=== PATIENT | female | born 1940 | race Caucasian/White ===

== ENCOUNTER 2022-04-24 13:58 | Inpatient (IN) ==
[2022-04-24 14:09] VITALS: BMI 23.3
--- NOTE | 2022-04-24 14:15 | DR.GENAD ---
HPI Time Seen Time Seen by Provider: 04/24/22 14:14 PCP Primary Care Physician: Corona Martinez Complaint/Symptoms Chief Complaint Doctors Comments: 82 y/o female presents for evaluation. Fell 5 days ago, seen in another ER. Had bilateral anterior knee wounds, were not closed (tissue paper skin), is on Eliquis. Pt had a knee immobilizer placed, with dressings underkneath to the RLE. Was told not totake off, to leave dressing intact. Pt having increasing pain of the RLE. Pain is sharp, constant, located R knee/lower leg, does not radiate. + worse with minimal movement. Nothing makes it better. Has had some chills, no known fever. Denies URI, bowel or bladder symptoms. Chief Complaint:: I feel 5 days ago and now I'm having severe left leg pain unrelieved by rx. Tramadol. Pt. rates pain 15-20 on 10 point pain scale. Pt. anxious with elevated BP of 220/99. Left leg in long leg splint. 2-3+ edema noted to left foot. Foot blue but warm to touch with positive pedal pulses. Pt. also has injury to right knee, but states that doesn't hurt much. Pt's son arrived and further explained that she was seen at the ER in [place]. When she fell, she landed on her knees and had no broken bones just bad skin tears to both knees that were unable to be sutured d/t skin very thin. Self Treatment fo Chief Complaint: Treat here in ER 5 days ago for fall COVID-19 Coronavirus risk:travel/contact w/high risk person: No Has patient experienced Coronavirus symptoms: No Nurses notes reviewed Nurses Notes Review: Yes Source History Provided: Patient Mode of Arrival Mode of Arrival: EMS Timing Onset of Chief Complaint: 04/24/22 PMH PMH Past Medical History: Yes Past Medical History: Coronary Artery Disease, Dyslipidemia, GERD and Hypertension Past Surgical History: Yes Surgical History: Angioplasty/Stents, Hysterectomy and Mastectomy Past Surgical History Comment: cataracts Family History History of Family Medical Conditions: Yes Family Medical History: Cancer, [place] and Coronary Artery Disease Social History Does patient currently use any type of tobacco product: No Have you used tobacco products in the last 12 months: No Type of Tobacco Use: None Does any household member use tobacco: No Alcohol Use: None Do you use any recreational Drugs:: No Lives With: Alone Lives Where: Home Travel Risk Coronavirus risk:travel/contact w/high risk person: No Has patient experienced Coronavirus symptoms: No Infectious screening In the last 2 months have you had wt loss of >10#?: NO Have you had fever, night sweats or hemotysis?: No Have you traveled outside the country in the last 6 months?: No Isolation: Standard ROS Review of Systems Constitutional: Chills Eyes: No Symptoms Reported ENTM: No Symptoms Reported Respiratoy: No Symptoms Reported Cardiovascular: No Symptoms Reported Gastrointestinal/Abdominal: No Symptoms Reported Genitourinary: No Symptoms Reported Neurological: No Symptoms Reported Musculoskeletal: See HPI Integumentary: No Symptoms Reported Psychiatric: No Symptoms Reported All Other Systems: Reviewed and Negative PE Vital Signs Vitals: Temperature 97.7 F Pulse Rate 63 Respiratory Rate 16 Blood Pressure [Right Radial 178/81 Artery] Blood Pressure 185/85 O2 Sat by Pulse Oximetry 98 General General Appearance: Alert, In No Apparent Distress and Other (appears uncomfortable) Eyes Eye exam: PERRL and EOMI ENT ENT Exam: Normal Oropharynx and Mucous Membranes Moist Neck Neck Exam: Normal Inspection and Full ROM Respiratory Respiratory Exam: Normal Lung Sounds Bilat; negative Accessory Muscle Use or Respiratory Distress Cardiovascular Cardiovascular Exam: Regular Rate, Normal Rhythm and Normal Heart Sounds Abdominal Exam Abdominal Exam: Normal Bowel Sounds and Soft; negative Tenderness Neurologic Neurological Exam: Alert, Oriented X3 and CN II-XII Intact; negative Motor Sensory Deficit Skin Skin Exam: Warm and Dry Other Exam Other Exam: L knee - immobilizer, dressings removed (after soaking w/saline) - + large anterior wound of the knee, 8.1 x 10.2 cms. L anterior napier wih 7.0 x 4.5 cms wound. Both with significant surrounding soft tissue tenderness. + pitting edema, 2+ of lower exts bilaterally, soft, not taught. Left foot was dusky with dressing/splint on, + pinker on removal. + distal NV intact. R anterior knee with smaller abrasion wound. COURSE Treatment Treatment: 82 y/o female fell 5 days ago, injured both knees, with avulsion type wounds. Now with increasing pain. Splint/dressing had a lot of pressure on the wound, removed. Do not believ the pt has compartment syndrome clinically. Does appear to be developing LLE cellulitis. W/u initiated. Pt given IV fluids. 1746 - + elevated WBC, 21K. Chemistries show low potassium, 2.6 . Is on lasix. X-rays without obvious gas formation, fractures, or osteomyelitis changes. Pt started on antibiotics. Recommend admission for further treatment of LLE cellulitis, hypokalemia. Pt givne PO/IV potassium here. Discussed with Dr Chacon's RN (he is process validation engineer). Will treat the pt with IV zosyn/vancomycin. PT given IV morphine here with good effect. ROR Labs Reviewed Result Diagrams: 04/24/22 14:40 04/24/22 14:40 Laboratory: WBC 21.5 X10^3/uL (3.6-10.0) H 04/24/22 14:40 RBC 3.96 X10^6/uL (3.5-5.4) 04/24/22 14:40 Hgb 12.5 g/dL (12.0-16.0) 04/24/22 14:40 Hct 36.2 % (36.0-47.0) 04/24/22 14:40 MCV 91.5 fL (80.0-100.0) 04/24/22 14:40 MCH 31.6 pg (27.0-34.0) 04/24/22 14:40 MCHC 34.6 g/dL (33.0-35.0) 04/24/22 14:40 RDW 15.1 % (11.6-16.5) 04/24/22 14:40 Plt Count 356 X10^3/uL (150.0-450.0) 04/24/22 14:40 Plt Count Comment Adequate (ADEQUATE) 04/24/22 14:40 MPV 6.8 fL (7.4-11.0) L 04/24/22 14:40 Neut % (Auto) 87.7 % (42.0-75.0) H 04/24/22 14:40 Lymph % (Auto) 5.5 % (21.0-51.0) L 04/24/22 14:40 [place] % (Auto) 6.3 % (0.0-13.0) 04/24/22 14:40 Eos % (Auto) 0.1 % (0.9-2.9) L 04/24/22 14:40 Baso % (Auto) 0.4 % (0.2-1.0) 04/24/22 14:40 Neut # (Auto) 18.9 x10^3/uL (2.2-4.8) H 04/24/22 14:40 Lymph # (Auto) 1.2 X10^3/uL (1.3-2.9) L 04/24/22 14:40 [place] # (Auto) 1.4 x10^3/uL (0.3-0.8) H 04/24/22 14:40 Eos # (Auto) 0.0 x10^3/uL (0.0-0.2) 04/24/22 14:40 Baso # (Auto) 0.1 X10^3/uL (0.0-0.1) 04/24/22 14:40 Absolute Nucleated RBC 0.0 /100WBC 04/24/22 14:40 Total Counted 100 04/24/22 14:40 Neutrophils % (Manual) 93 % (39-76) H 04/24/22 14:40 Lymphocytes % (Manual) 5 % (13-43) L 04/24/22 14:40 Monocytes % (Manual) 2 % (4-9) L 04/24/22 14:40 Plt Morphology Comment Normal (NORMAL) 04/24/22 14:40 RBC Morphology Normal (NORMAL) 04/24/22 14:40 Sodium 141 mmol/L (136-145) 04/24/22 14:40 Corrected Sodium 142 mmol/L (136-145) 04/24/22 14:40 Potassium 2.6 mmol/L (3.5-5.1) L* 04/24/22 14:40 Chloride 102 mmol/L (98-107) 04/24/22 14:40 Carbon Dioxide 27.5 mmol/L (21-32) 04/24/22 14:40 BUN 32 mg/dL (7-18) H 04/24/22 14:40 Creatinine 1.11 mg/dL (0.55-1.02) H 04/24/22 14:40 Est GFR (MDRD) Af Amer > 60 (>60) 04/24/22 14:40 Est GFR (MDRD) Non-Af 50 (>60) L 04/24/22 14:40 Glucose 134 mg/dL (65-99) H 04/24/22 14:40 Lactic Acid 2.0 mmol/L (0.4-2.0) 04/24/22 15:30 Calcium 8.8 mg/dL (8.5-10.1) 04/24/22 14:40 Corrected Calcium 9.9 mg/dL (8.5-10.1) 04/24/22 14:40 Total Bilirubin 1.00 mg/dL (0.2-1.0) 04/24/22 14:40 AST 27 Units/L (15-37) 04/24/22 14:40 ALT 20 Units/L (12-78) 04/24/22 14:40 Alkaline Phosphatase 69 Units/L (46-116) 04/24/22 14:40 Total Protein 6.7 g/dL (6.4-8.2) 04/24/22 14:40 Albumin 2.6 g/dL (3.4-5.0) L 04/24/22 14:40 Globulin 4.1 g/dL (2.5-4.5) 04/24/22 14:40 Albumin/Globulin Ratio 0.6 Ratio (1.1-2.1) L 04/24/22 14:40 Opioid Opioid Risk Tool Age (Ebenezer box if 16-45): No History of Preadolescent Sexual Abuse: No Total: 0 Total Score Risk Category: Low Risk Copyright: Demar BERRIOS predicting aberrant behaviors Discharge Plan Diagnosis Discharge Problem: Cellulitis of left leg, Hypokalemia Discharge Plan Patient Disposition: ADMITTED INPATIENT Condition: Stable
[2022-04-24] MEDS ORDERED: MORPHINE SULFATE INJ 4 MG ONE ×3 (14:20→16:56)
[2022-04-24] MEDS ORDERED: ZOFRAN INJ 4 MG VIAL IVP ONE (14:22)
[2022-04-24] MEDS ORDERED: ZOFRAN INJ 4 MG VIAL ONE (14:22)
[2022-04-24] MEDS ORDERED: MORPHINE SULFATE INJ 4 MG IVP ONE ×3 (14:22→17:10)
[2022-04-24] MEDS ORDERED: NS 1,000 ML IV 1,000 ML ONE (14:30)
[2022-04-24] MEDS: NS 1,000 ML IV 1,000 ML IV SCH (14:34)
[2022-04-24 14:52] LABS: BASOPHILS # (AUTO) 0.1 X10^3/uL (0.0-0.1); BASOPHILS % (AUTO) 0.4 % (0.2-1.0); EOSINOPHILS % (AUTO) 0.1 % (0.9-2.9); HEMATOCRIT 36.2 % (36.0-47.0); HEMOGLOBIN 12.5 g/dL (12.0-16.0); LYMPHOCYTES # (AUTO) 1.2 X10^3/uL (1.3-2.9); LYMPHOCYTES % (AUTO) 5.5 % (21.0-51.0); MEAN CORPUSCULAR HEMOGLOBIN 31.6 pg (27.0-34.0); MEAN CORPUSCULAR HGB CONC 34.6 g/dL (33.0-35.0); MEAN CORPUSCULAR VOLUME 91.5 fL (80.0-100.0); MEAN PLATELET VOLUME 6.8 fL (7.4-11.0); MONOCYTES # (AUTO) 1.4 x10^3/uL (0.3-0.8); MONOCYTES % (AUTO) 6.3 % (0.0-13.0); NEUTROPHILS # (AUTO) 18.9 x10^3/uL (2.2-4.8); NEUTROPHILS % (AUTO) 87.7 % (42.0-75.0); RED BLOOD COUNT 3.96 X10^6/uL (3.5-5.4); RED CELL DISTRIBUTION WIDTH 15.1 % (11.6-16.5); WHITE BLOOD COUNT 21.5 X10^3/uL (3.6-10.0)
[2022-04-24 15:05] LABS: ALANINE AMINOTRANSFERASE 20 Units/L (12-78); ALBUMIN 2.6 g/dL (3.4-5.0); ALKALINE PHOSPHATASE 69 Units/L (46-116); ASPARTATE AMINO TRANSFERASE 27 Units/L (15-37); BLOOD UREA NITROGEN 32 mg/dL (7-18); CALCIUM 8.8 mg/dL (8.5-10.1); CARBON DIOXIDE 27.5 mmol/L (21-32); CHLORIDE 102 mmol/L (98-107); COR CA(FOR HYPOALB) 9.9 mg/dL (8.5-10.1); COR NA(FOR HYPERGLY) 142 mmol/L (136-145); CREATININE 1.11 mg/dL (0.55-1.02); SODIUM 141 mmol/L (136-145); TOTAL PROTEIN 6.7 g/dL (6.4-8.2); eGFR NON BLACK RACES 50 (>60)
[2022-04-24 15:14] LABS: PLATELET MORPHOLOGY COMMENT NORMAL (NORMAL)
[2022-04-24] MEDS ORDERED: ZOSYN VIAL 4.5 GRAMS 4.5 G in NS 100 ML IV 100 ML IV SCH (15:23)
[2022-04-24] MEDS ORDERED: LOPRESSOR INJ 5 MG AMP IVP ONE (17:10)
[2022-04-24] MEDS ORDERED: LOPRESSOR INJ 5 MG AMP ONE (17:12)
[2022-04-24] MEDS ORDERED: K-RIDER 10 MEQ/NS 100 ML 10 MEQ/100 ML BAG IV ONE (17:20)
[2022-04-24] MEDS ORDERED: K-DUR TAB 20 MEQ PO ONE ×2 (17:21→17:39)
[2022-04-24] MEDS ORDERED: ZOSYN VIAL 3.375 GRAMS 3.375 G in NS 100 ML IV 100 ML IV ONE (17:37)
[2022-04-24] MEDS ORDERED: ZOSYN VIAL 3.375 GRAMS IV ONE (17:39)
[2022-04-24] MEDS ORDERED: NS 100 ML IV 100 ML ONE (17:40)
[2022-04-24] MEDS ORDERED: APRESOLINE INJ 20 MG VIAL IVP ONE ×2 (18:03→18:04)
[2022-04-24] MEDS ORDERED: APRESOLINE INJ 20 MG VIAL ONE (18:04)
[2022-04-24] MEDS ORDERED: ULTRAM PO PRN ×2 (18:56→19:09)
[2022-04-24] MEDS ORDERED: ZOSYN VIAL 3.375 GRAMS 3.375 G in NS 100 ML IV 100 ML IV SCH (19:09)
[2022-04-24] MEDS ORDERED: ZOFRAN INJ 4 MG VIAL IVP PRN (19:09)
[2022-04-24] MEDS ORDERED: VANCOMYCIN IV *PREMIX 1 G/200 ML BAG 1 G/200 ML PIGGYBACK IV SCH ×2 (19:09→21:00)
--- NOTE | 2022-04-24 20:31 | RAD ---
HISTORYS/P FALL FIVE DAYS AGO, WOUND AND WORSENING PAIN HTN,STENTS,EYE, HYST, MASTECTOMYSTUDYKNEE, AP/LAT RIGHT 2vCOMPARISONNoneFINDINGSNo evidence for acute cortical disruption or dislocation. Moderate tricompartmental osteoarthrosis. Chondrocalcinosis in the medial and lateral compartments. Moderate knee joint effusion. Soft tissue edema surrounding the knee.IMPRESSIONTricompartmental osteoarthrosis without acute fracture or dislocation.Electronically signed by: BHAVESH MARLOW (Apr 24, 2022 20:29:32)
--- NOTE | 2022-04-24 20:34 | RAD ---
HISTORYS/P FALL SATURDAY, WOUND AND WORSENING PAIN HTN, STENTS, EYE, HYST, MASTECTOMYSTUDYLOWER LEG, TIB/FIB RIGHT 2vCOMPARISONRight knee same dayFINDINGSAP and lateral radiographs of the lower extremity demonstrate no evidence for acute cortical disruption. Edema in the upper calf.. Calcaneal enthesophytes.IMPRESSIONEdema without acute fracture.Electronically signed by: BHAVESH MARLOW (Apr 24, 2022 20:32:12)
[2022-04-24] MEDS ORDERED: LIPITOR TAB 40 MG PO SCH (21:00)
[2022-04-24] MEDS ORDERED: FERROUS GLUCONATE PO SCH (21:00)
[2022-04-24] MEDS ORDERED: REQUIP PO SCH (21:00)
[2022-04-24] MEDS: REQUIP PO SCH (21:39)
[2022-04-24] MEDS: FERROUS GLUCONATE PO SCH (21:40)
[2022-04-24] MEDS: COREG TAB 6.25 MG PO SCH (21:40)
[2022-04-24] MEDS: K-DUR TAB 20 MEQ PO SCH (21:41)
[2022-04-24] MEDS: MORPHINE SULFATE INJ 4 MG IVP PRN (21:42)
[2022-04-24] MEDS: ZOSYN VIAL 3.375 GRAMS 3.375 G in NS 100 ML IV 100 ML IV SCH (23:11)
[2022-04-25] MEDS: MORPHINE SULFATE INJ 4 MG IVP PRN ×5 (04:34→23:32)
[2022-04-25 04:53] LABS: BASOPHILS # (AUTO) 0.1 X10^3/uL (0.0-0.1); BASOPHILS % (AUTO) 0.4 % (0.2-1.0); HEMATOCRIT 33.9 % (36.0-47.0); HEMOGLOBIN 11.5 g/dL (12.0-16.0); LYMPHOCYTES # (AUTO) 0.8 X10^3/uL (1.3-2.9); LYMPHOCYTES % (AUTO) 4.4 % (21.0-51.0); MEAN CORPUSCULAR HEMOGLOBIN 31.8 pg (27.0-34.0); MEAN CORPUSCULAR HGB CONC 33.9 g/dL (33.0-35.0); MEAN PLATELET VOLUME 6.8 fL (7.4-11.0); MONOCYTES # (AUTO) 1.1 x10^3/uL (0.3-0.8); MONOCYTES % (AUTO) 6.1 % (0.0-13.0); NEUTROPHILS % (AUTO) 89.1 % (42.0-75.0); RED BLOOD COUNT 3.61 X10^6/uL (3.5-5.4); RED CELL DISTRIBUTION WIDTH 15.1 % (11.6-16.5); WHITE BLOOD COUNT 17.9 X10^3/uL (3.6-10.0)
[2022-04-25 05:05] LABS: ALANINE AMINOTRANSFERASE 19 Units/L (12-78); ALBUMIN 2.1 g/dL (3.4-5.0); ALKALINE PHOSPHATASE 60 Units/L (46-116); ASPARTATE AMINO TRANSFERASE 23 Units/L (15-37); BLOOD UREA NITROGEN 27 mg/dL (7-18); CALCIUM 8.1 mg/dL (8.5-10.1); CHLORIDE 106 mmol/L (98-107); COR CA(FOR HYPOALB) 9.6 mg/dL (8.5-10.1); COR NA(FOR HYPERGLY) 143 mmol/L (136-145); CREATININE 0.89 mg/dL (0.55-1.02); SODIUM 142 mmol/L (136-145); TOTAL PROTEIN 5.9 g/dL (6.4-8.2); eGFR NON BLACK RACES > 60 (>60)
[2022-04-25] MEDS: ZOSYN VIAL 3.375 GRAMS 3.375 G in NS 100 ML IV 100 ML IV SCH ×3 (05:06→23:31)
[2022-04-25] MEDS: NS 1,000 ML IV 1,000 ML IV SCH ×2 (05:47→19:30)
[2022-04-25] MEDS ORDERED: LIPITOR TAB 40 MG PO SCH (09:00)
[2022-04-25] MEDS ORDERED: COREG TAB 6.25 MG PO SCH (09:00)
[2022-04-25] MEDS ORDERED: COZAAR PO SCH (09:00)
[2022-04-25] MEDS ORDERED: PLAVIX PO SCH (09:00)
[2022-04-25] MEDS ORDERED: CARDIZEM CD 180 MG 24-HR PO SCH (09:00)
[2022-04-25] MEDS ORDERED: PROTONIX TAB 40 MG PO SCH (09:00)
[2022-04-25] MEDS: VANCOMYCIN IV *PREMIX 1 G/200 ML BAG 1 G/200 ML PIGGYBACK IV SCH ×2 (10:00→21:59)
[2022-04-25] MEDS ORDERED: BETADINE SOLN ONE (10:44)
--- NOTE | 2022-04-25 10:54 | DR.H&P ---
H&P - History & Physical for Day of: H&P Date: 04/24/22 - Chief Complaint Chief Complaint: bilateral knee and lower leg pain, multiple skin tears - History of Present Illness History of Present Illness: IS A 82 YEAR OLD PATIENT OF IN [place], [place]. SHE PRESENTED TO THE ER WITH COMPLAINTS OF RIGHT KNEE AND BILATERAL LOWER EXTREMITY PAIN FOLLOWING A FALL FIVE DAYS AGO. SHE WAS FIRST SEEN IN THE ER AT [facility] FOLLOWING THE FALL. [facility]RAYS DID NOT REVEAL ACUTE FRACTURES. PATIENT DID, HOWEVER, HAVE MULTIPLE SKIN TEARS TO BILATERAL LEGS. SHE REPORTS THAT A DRESSING WAS PLACED ON THE LEG WELL AN IMMOBILIZER. PATIENT WAS TOLD NOT TO REMOVE THE DRESSING. PATIENT REPORTS THAT PAIN HAS PERSISTENTLY GOTTEN WORSE. SHE ALSO REPORTS INCREASED SWELLING TO THE LEFT FOOT. SHE RATES PAIN A 10/10. SHE DESCRIBES PAIN SHARP AND CONSTANT. SHE REPORTS THAT PAIN HAS NOT BEEN RELIEVED BY TAKING TRAMADOL. PAIN IS APPARENTLY WORSE WITH MOVEMENT. UPON EXAMINATION, LEFT FOOT WAS NOTED WITH 2-3+ PITTING EDEMA. MODERATE BRUISING NOTED TO BILATERAL LOWER EXTREMITIES. THERE WERE ALSO MULTIPLE SKIN TEARS NOTED TO BILATERAL LEGS WITH THE LEFT BEING WORSE THAN THE RIGHT LEG. SEROSANGUINOUS DRAINAGE NOTED FROM WOUNDS OF THE LEFT LEG. ADDITIONALLY, PATIENT REPORTS SEVERE WEAKNESS TO UPPER AND LOWER EXTREMITIES. PATIENTS PMH INCLUDES: CAD, DYSLIPIDEMIA, GERD, HTN, CARDIAC STENTS, HYSTERECTOMY, AND MASTECTOMY. ON ARRIVAL TO THE HOSPITAL, VITALS WERE: 97.7-72-20-99%-220/99. LABS WERE OBTAINED. WBC 21.5, RBC 3.96, HGB 12.5, HCT 36.2, PLT COUNT 356, SODIUM 141, POTASSIUM 2.6, CHLORIDE 102, BUN 32, CREATININE 1.11, GLUCOSE 134, CALCIUM 8.8, TOTAL BILI 1.00, AST 27, ALT 20, ALK PHOS 69, TOTAL PROTEIN 6.7, ALBUMIN 2.6. A RIGHT KNEE XRAY WAS OBTAINED AND REVEALED: Tricompartmental osteoarthrosis without acute fracture or dislocation. RIGHT TIB/FIB XRAY REVEALED: Edema without acute fracture. IN THE ER, PATIENT WAS GIVEN MORPHINE 4MG IV X 2 DOSES, ZOFRAN 4MG IV X 1, LOPRESSOR 2.5MG IV X 1, K- DUR 20MG PO X 1, APRESOLINE 10MG IV X 1, ZOSYN 3.375G IV X 1. BLOOD PRESSURE DECREASED TO 181/83. SHE WAS ADMITTED TO THE HOSPITAL FOR FURTHER EVALUATION AND TREATMENT OF BILATERAL LOWER EXTREMITY CELLULITIS, HYPOKALEMIA, AND GENERALIZED WEAKNESS. SHE WAS STARTED ON NORMAL SALINE AT 75 ML/HR, ZOSYN 3.375G IV TID, VANCOMYCIN 1G IV BID, ALBUMIN 25% IV DAILY, ZOFRAN 4MG IV Q6H PRN, MORPHINE 4MG IV Q4H PRN PAIN, COZAAR 50MG PO DAILY, AND HER HOME MEDICATIONS WERE RESUMED. WE WILL CONSULT , GENERAL SURGEON, FOR POSSIBLE DEBRIDEMENT OF WOUNDS. OTHERWISE, WE WILL FOLLOW-UP WITH AM LABS AND CONTINUE TO MONITOR. TIME SPENT ON CLINICAL ASSESSMENT, REVIEWING LABS AND IMAGING, DECISION MAKING, AND DOCUMENTATION GREATER THAN 75 MINUTES. - Past Medical History Past Medical History: Coronary Artery Disease, Hypertension, Dyslipidemia, GERD - Past Surgical History Surgical History: Hysterectomy, Mastectomy - Family History Family Medical History: Cancer, Hypertension - Social History Does patient currently use any type of tobacco product: No Have you used tobacco products in the last 12 months: No Type of Tobacco Use: Cigarettes How many years tobacco product used: 35 Does any household member use tobacco: No Alcohol Use: None Drug Use: None - Medications Home Medications: ciprofloxacin [From Cipro] Allergy (Verified 11/10/21 17:47) clindamycin Allergy (Verified 11/10/21 17:47) codeine Allergy (Verified 11/10/21 17:47) nitrofurantoin [From Macrobid] Allergy (Verified 11/10/21 17:47) CONTINUE taking the following medications atorvastatin 40 mg tablet 1 tab PO QDAY 04/24/22 [History] carvedilol 6.25 mg tablet 1 tab PO BID 04/24/22 [History] clopidogrel 75 mg tablet 1 tab PO QDAY 04/24/22 [History] diltiazem HCl 180 mg capsule,extended release 24 hr 1 cap PO QDAY 04/24/22 [History] ferrous sulfate 325 mg (65 mg iron) tablet (FeroSul) 1 tab PO BID 04/24/22 [History] furosemide 40 mg tablet 1 tab PO QDAY 04/24/22 [History] losartan 50 mg tablet 1 tab PO QDAY 04/24/22 [History] pantoprazole 40 mg tablet,delayed release 1 tab PO QDAY 04/24/22 [History] ropinirole 0.5 mg tablet 1 tab PO QPM 04/24/22 [History] tramadol 50 mg tablet 1 tab PO Q6H PRN 04/24/22 [History] - Review of Systems Constitutional: Chills, Weakness. denies: Fever Eyes: No Symptoms Reported ENT: No Symptoms Reported Respiratory: No Symptoms Reported Cardiovascular: No Symptoms Reported Gastrointestinal: No Symptoms Reported Genitourinary: No Symptoms Reported Musculoskeletal: See HPI, Leg Pain (LEFT LOWER LEG PAIN, RIGHT LOWER LEG PAIN, RIGHT KNEE PAIN ), Foot Pain (LEFT FOOT PAIN ) Skin: See HPI, Wound (BILATERAL LOWER EXTREMITY SKIN TEARS AND ABRASIONS) Neurological: Weakness - Physical Exam Vital Signs: Temperature 97.8 F Pulse Rate [Bilateral Radial] 68 Pulse Rate 59 Respiratory Rate 19 Blood Pressure [Right Arm] 163/73 Blood Pressure [Right Radial 126/60 Artery] Blood Pressure 198/83 O2 Sat by Pulse Oximetry 94 Oriented: Normal Eyes: Normal Ear: Normal Nose: Normal Throat: Normal Respiratory: Clear Throughout Cardiovascular: Normal : Normal Auscultation: Bowel Sounds: Normal Palpation: Normal Tenderness: Normal Skin: Red, Tender, Hot, Wound (BILATERAL LOWER EXTREMITY SKIN TEARS AND ABRASIONS), Bruising Musculoskeletal: Right, Left, Knee (RIGHT KNEE PAIN ), Leg (BILATERAL LOWER EXTREMITY SKIN TEARS ), Foot, Swelling (LEFT FOOT SWELLING ), Tender Psychiatric: Normal Mood Description: Calm Affect: Normal Speech Pattern: Clear - Assessment/Plan (1) Bilateral lower leg cellulitis Status: Acute Plan: ADMIT, NORMAL SALINE AT 75 ML/HR, ZOSYN 3.375G IV TID, VANCOMYCIN 1G IV BID, ALBUMIN 25% IV DAILY, ZOFRAN 4MG IV Q6H PRN, MORPHINE 4MG IV Q4H PRN PAIN, COZAAR 50MG PO DAILY, AND HER HOME MEDICATIONS WERE RESUMED. CONSULT FOR WOUND DEBRIDEMENT (2) Generalized weakness Status: Acute (3) Hypokalemia Status: Acute (4) Hypoalbuminemia Status: Acute - Allergies Allergies/Adverse Reactions: Allergies Allergy/AdvReac Type Severity Reaction Status Date / Time ciprofloxacin [From Cipro] Allergy Verified 11/10/21 17:47 clindamycin Allergy Verified 11/10/21 17:47 codeine Allergy Verified 11/10/21 17:47 nitrofurantoin Allergy Verified 11/10/21 17:47 [From [place]]
[2022-04-25] MEDS ORDERED: POLYMYXIN B SULFATE ONE (10:59)
[2022-04-25] MEDS ORDERED: LR 1,000 ML IV 1,000 ML IV ONE (11:14)
[2022-04-25] MEDS ORDERED: PEPCID 20 MG VIAL ONE (11:27)
[2022-04-25] MEDS ORDERED: ROBINUL ONE (11:27)
[2022-04-25] MEDS ORDERED: ZOFRAN INJ 4 MG VIAL ONE (11:27)
[2022-04-25] MEDS ORDERED: PRECEDEX INJ VIAL IVP ONE (11:28)
[2022-04-25] MEDS ORDERED: XYLOCAINE 2 % (PLAIN) ONE (11:28)
[2022-04-25] MEDS ORDERED: VERSED ONE (11:32)
[2022-04-25] MEDS ORDERED: KETAMINE 50 MG/5 ML-NACL SYRNG ONE (11:32)
--- NOTE | 2022-04-25 11:43 | EKG ---
Test Reason : pre-op Blood Pressure : */* mmHG Vent. Rate : 62 BPM Atrial Rate : 62 BPM P-R Int : 144 ms QRS Dur : 80 ms QT Int : 436 ms P-R-T Axes : 65 1 60 degrees QTc Int : 442 ms Sinus rhythm with occasional premature ventricular complexes Minimal voltage criteria for LVH, may be normal variant ( [place] product ) Anterolateral infarct , age undetermined Abnormal ECG No previous ECGs available Confirmed by Shaun Mendoza ([id number]) on 04/26/2022 10:28:50 AM Referred By: Confirmed By: Shaun Mendoza
[2022-04-25] MEDS ORDERED: ULTANE GAS IN ONE (11:44)
[2022-04-25] MEDS ORDERED: LACRI-LUBE S.O.P. ONE (11:52)
[2022-04-25] MEDS ORDERED: EPHEDRINE SULFATE INJ ONE (12:01)
[2022-04-25] MEDS ORDERED: HYDROGEN PEROXIDE 3% ONE (12:18)
[2022-04-25] MEDS ORDERED: BACTROBAN TOPICAL OINT ONE (12:20)
[2022-04-25] MEDS ORDERED: OFIRMEV IV 1000 MG VIAL 1,000 MG/100 ML VIAL IV ONE (12:26)
[2022-04-25] MEDS ORDERED: DILAUDID INJ IVP PRN (12:46)
[2022-04-25] MEDS ORDERED: ZOFRAN INJ 4 MG VIAL IVP PRN (12:46)
[2022-04-25] MEDS ORDERED: BENADRYL INJ 50 MG VIAL IVP PRN (12:46)
[2022-04-25] MEDS: K-DUR TAB 20 MEQ PO SCH ×2 (13:59→21:58)
[2022-04-25] MEDS: PLAVIX PO SCH (14:02)
[2022-04-25] MEDS: ALBUMIN HUMAN 25%- 100 ML 100 ML IV SCH (14:13)
[2022-04-25] MEDS: COREG TAB 6.25 MG PO SCH ×2 (14:17→21:59)
[2022-04-25] MEDS: PROTONIX TAB 40 MG PO SCH (14:17)
[2022-04-25] MEDS: CARDIZEM CD 180 MG 24-HR PO SCH (14:18)
[2022-04-25] MEDS: COZAAR PO SCH (14:18)
[2022-04-25] MEDS: LASIX PO SCH (14:18)
[2022-04-25] MEDS: FERROUS GLUCONATE PO SCH ×2 (14:19→21:59)
[2022-04-25] MEDS: REQUIP PO SCH (21:58)
[2022-04-26] MEDS ORDERED: CATAPRES TAB 0.1 MG PO ONE (03:58)
[2022-04-26] MEDS ORDERED: CATAPRES TAB 0.1 MG ONE (04:31)
[2022-04-26] MEDS: MORPHINE SULFATE INJ 4 MG IVP PRN ×3 (04:45→21:27)
[2022-04-26 05:34] LABS: BASOPHILS % (AUTO) 0.3 % (0.2-1.0); HEMATOCRIT 29.9 % (36.0-47.0); HEMOGLOBIN 10.3 g/dL (12.0-16.0); LYMPHOCYTES # (AUTO) 0.9 X10^3/uL (1.3-2.9); LYMPHOCYTES % (AUTO) 6.6 % (21.0-51.0); MEAN CORPUSCULAR HEMOGLOBIN 32.3 pg (27.0-34.0); MEAN CORPUSCULAR HGB CONC 34.6 g/dL (33.0-35.0); MEAN CORPUSCULAR VOLUME 93.5 fL (80.0-100.0); MEAN PLATELET VOLUME 7.2 fL (7.4-11.0); MONOCYTES # (AUTO) 0.8 x10^3/uL (0.3-0.8); MONOCYTES % (AUTO) 5.8 % (0.0-13.0); NEUTROPHILS # (AUTO) 11.4 x10^3/uL (2.2-4.8); NEUTROPHILS % (AUTO) 87.3 % (42.0-75.0); RED BLOOD COUNT 3.19 X10^6/uL (3.5-5.4); RED CELL DISTRIBUTION WIDTH 15.3 % (11.6-16.5)
[2022-04-26 05:44] LABS: ALANINE AMINOTRANSFERASE 51 Units/L (12-78); ALBUMIN 2.6 g/dL (3.4-5.0); ALKALINE PHOSPHATASE 61 Units/L (46-116); ASPARTATE AMINO TRANSFERASE 63 Units/L (15-37); BLOOD UREA NITROGEN 23 mg/dL (7-18); CALCIUM 8.4 mg/dL (8.5-10.1); CARBON DIOXIDE 26.3 mmol/L (21-32); CHLORIDE 107 mmol/L (98-107); COR CA(FOR HYPOALB) 9.5 mg/dL (8.5-10.1); COR NA(FOR HYPERGLY) 144 mmol/L (136-145); CREATININE 0.82 mg/dL (0.55-1.02); SODIUM 143 mmol/L (136-145); TOTAL PROTEIN 5.9 g/dL (6.4-8.2); eGFR NON BLACK RACES > 60 (>60)
[2022-04-26] MEDS: ZOSYN VIAL 3.375 GRAMS 3.375 G in NS 100 ML IV 100 ML IV SCH ×3 (05:49→23:00)
[2022-04-26] MEDS ORDERED: PHARMACY COMMENT IV ONE (08:30)
[2022-04-26] MEDS ORDERED: ZESTRIL TAB 5 MG PO SCH (09:15)
[2022-04-26] MEDS: CARDIZEM CD 180 MG 24-HR PO SCH (09:49)
[2022-04-26] MEDS: LASIX PO SCH (09:49)
[2022-04-26] MEDS: COREG TAB 6.25 MG PO SCH ×3 (09:49→21:25)
[2022-04-26] MEDS: PROTONIX TAB 40 MG PO SCH (09:50)
[2022-04-26] MEDS: K-DUR TAB 20 MEQ PO SCH ×2 (09:50→21:24)
[2022-04-26] MEDS: NORVASC TAB 5 MG PO SCH (09:50)
[2022-04-26] MEDS: PLAVIX PO SCH (09:51)
[2022-04-26] MEDS: COZAAR PO SCH (09:51)
[2022-04-26] MEDS: VANCOMYCIN IV *PREMIX 1 G/200 ML BAG 1 G/200 ML PIGGYBACK IV SCH ×2 (09:51→21:26)
[2022-04-26] MEDS: FERROUS GLUCONATE PO SCH ×2 (09:51→21:26)
[2022-04-26] MEDS: ALBUMIN HUMAN 25%- 100 ML 100 ML IV SCH (10:00)
[2022-04-26] MEDS: NS 1,000 ML IV 1,000 ML IV SCH ×2 (12:36→21:27)
[2022-04-26 14:08] LABS: BILIRUBIN,URINE NEGATIVE (NEGATIVE); BLOOD/HEMOGLOBIN,URINE NEGATIVE (NEGATIVE); GLUCOSE, URINE NEGATIVE (NEGATIVE); KETONES,URINE NEGATIVE (NEGATIVE); LEUKOCYTE ESTERASE ,URINE NEGATIVE (NEGATIVE); NITRITES,URINE NEGATIVE (NEGATIVE); PROTEIN,URINE 1+ (NEGATIVE); UROBILINOGEN,URINE NORMAL (NORMAL)
[2022-04-26 14:15] LABS: APPEARANCE,URINE CLEAR (CLEAR); COLOR,URINE PALE YELLOW (YELLOW)
[2022-04-26 14:16] LABS: BACTERIA,URINE TRACE /HPF (NEGATIVE); SQUAMOUS EPITHELIAL CELL,UR RARE /HPF (NEGATIVE)
--- NOTE | 2022-04-26 17:21 | DR.PROGNOT ---
Hospital Progress Notes - Progress Note for Day of: Progress Note Date: 04/26/22 - Chief Complaint Chief Complaint: c/o pain both knees . WBC 13.0. Vanco rand 21.4. afebrile .. - Past Medical Family Social History Past Med/Fam/Surg Hx: No changes since H&P Allergies: Allergies ciprofloxacin [From Cipro] Allergy (Verified 11/10/21 17:47) clindamycin Allergy (Verified 11/10/21 17:47) codeine Allergy (Verified 11/10/21 17:47) nitrofurantoin [From Macrobid] Allergy (Verified 11/10/21 17:47) - Review Of Systems ROS: No change since H&P - Vital Signs Vital Signs: Temperature 97.9 F Pulse Rate [Bilateral Radial] 51 Pulse Rate 60 Respiratory Rate 20 Blood Pressure [Right Calf] 186/83 Blood Pressure [Right Arm] 179/78 Blood Pressure [Right Radial 126/60 Artery] Blood Pressure 170/73 O2 Sat by Pulse Oximetry 97 - Physical Exam Oriented: Normal Eyes: Normal Ear: Normal Nose: Normal Throat: Normal Cardiovascular: Normal : Normal GI:Auscultation: Normal GI:Palpation: Normal GI: Tenderness: Normal Skin: Red, Tender, Hot, Wound (dressings intact .. distal pulses + . no edema .), Bruising Musculoskeletal: Right, Left, Knee (RIGHT KNEE PAIN ), Leg (BILATERAL LOWER EXTREMITY SKIN TEARS ), Foot, Swelling (LEFT FOOT SWELLING ), Tender Psychiatric: Normal Mood Description: Calm, Appropriate Affect: Normal Speech Pattern: Clear, Appropriate - Laboratory and Diagnostics Result Diagrams: 04/26/22 04:40 04/26/22 04:40 Labs: 04/24/22 15:41 Blood Blood Culture - Preliminary 04/24/22 15:30 Blood Blood Culture - Preliminary 04/25/22 12:10 Knee - Right Wound Culture - Preliminary 04/25/22 12:10 Knee - Left Wound Culture - Preliminary Laboratory WBC 13.0 X10^3/uL (3.6-10.0) H 04/26/22 04:40 RBC 3.19 X10^6/uL (3.5-5.4) L 04/26/22 04:40 Hgb 10.3 g/dL (12.0-16.0) L 04/26/22 04:40 Hct 29.9 % (36.0-47.0) L 04/26/22 04:40 MCV 93.5 fL (80.0-100.0) 04/26/22 04:40 MCH 32.3 pg (27.0-34.0) 04/26/22 04:40 MCHC 34.6 g/dL (33.0-35.0) 04/26/22 04:40 RDW 15.3 % (11.6-16.5) 04/26/22 04:40 Plt Count 294 X10^3/uL (150.0-450.0) 04/26/22 04:40 Plt Count Comment Adequate (ADEQUATE) 04/24/22 14:40 MPV 7.2 fL (7.4-11.0) L 04/26/22 04:40 Neut % (Auto) 87.3 % (42.0-75.0) H 04/26/22 04:40 Lymph % (Auto) 6.6 % (21.0-51.0) L 04/26/22 04:40 [place] % (Auto) 5.8 % (0.0-13.0) 04/26/22 04:40 Eos % (Auto) 0.0 % (0.9-2.9) L 04/26/22 04:40 Baso % (Auto) 0.3 % (0.2-1.0) 04/26/22 04:40 Neut # (Auto) 11.4 x10^3/uL (2.2-4.8) H 04/26/22 04:40 Lymph # (Auto) 0.9 X10^3/uL (1.3-2.9) L 04/26/22 04:40 [place] # (Auto) 0.8 x10^3/uL (0.3-0.8) 04/26/22 04:40 Eos # (Auto) 0.0 x10^3/uL (0.0-0.2) 04/26/22 04:40 Baso # (Auto) 0.0 X10^3/uL (0.0-0.1) 04/26/22 04:40 Absolute Nucleated RBC 0.0 /100WBC 04/26/22 04:40 Total Counted 100 04/24/22 14:40 Neutrophils % (Manual) 93 % (39-76) H 04/24/22 14:40 Lymphocytes % (Manual) 5 % (13-43) L 04/24/22 14:40 Monocytes % (Manual) 2 % (4-9) L 04/24/22 14:40 Plt Morphology Comment Normal (NORMAL) 04/24/22 14:40 RBC Morphology Normal (NORMAL) 04/24/22 14:40 Sodium 143 mmol/L (136-145) 04/26/22 04:40 Corrected Sodium 144 mmol/L (136-145) 04/26/22 04:40 Potassium 4.2 mmol/L (3.5-5.1) 04/26/22 04:40 Chloride 107 mmol/L (98-107) 04/26/22 04:40 Carbon Dioxide 26.3 mmol/L (21-32) 04/26/22 04:40 BUN 23 mg/dL (7-18) H 04/26/22 04:40 Creatinine 0.82 mg/dL (0.55-1.02) 04/26/22 04:40 Est GFR (MDRD) Af Amer > 60 (>60) 04/26/22 04:40 Est GFR (MDRD) Non-Af > 60 (>60) 04/26/22 04:40 Glucose 148 mg/dL (65-99) H 04/26/22 04:40 Lactic Acid 1.2 mmol/L (0.4-2.0) 04/24/22 18:15 Calcium 8.4 mg/dL (8.5-10.1) L 04/26/22 04:40 Corrected Calcium 9.5 mg/dL (8.5-10.1) 04/26/22 04:40 Magnesium 2.0 mg/dL (2.0-2.9) 04/25/22 04:33 Total Bilirubin 0.60 mg/dL (0.2-1.0) 04/26/22 04:40 AST 63 Units/L (15-37) H 04/26/22 04:40 ALT 51 Units/L (12-78) 04/26/22 04:40 Alkaline Phosphatase 61 Units/L (46-116) 04/26/22 04:40 Creatine Kinase 46 Units/L (26-192) 04/25/22 04:33 Total Protein 5.9 g/dL (6.4-8.2) L 04/26/22 04:40 Albumin 2.6 g/dL (3.4-5.0) L 04/26/22 04:40 Globulin 3.3 g/dL (2.5-4.5) 04/26/22 04:40 Albumin/Globulin Ratio 0.8 Ratio (1.1-2.1) L 04/26/22 04:40 Specimen Type Catherized urine 04/26/22 13:45 Urine Color Pale yellow (YELLOW) 04/26/22 13:45 Urine Appearance Clear (CLEAR) 04/26/22 13:45 Urine pH 7.0 (5.0 - 8.0) 04/26/22 13:45 Ur Specific [place] 1.005 (1.000-1.030) 04/26/22 13:45 Urine Protein 1+ (NEGATIVE) 04/26/22 13:45 Urine Glucose (UA) Negative (NEGATIVE) 04/26/22 13:45 Urine Ketones Negative (NEGATIVE) 04/26/22 13:45 Urine Blood Negative (NEGATIVE) 04/26/22 13:45 Urine Nitrite Negative (NEGATIVE) 04/26/22 13:45 Urine Bilirubin Negative (NEGATIVE) 04/26/22 13:45 Urine Urobilinogen Normal (NORMAL) 04/26/22 13:45 Ur Leukocyte Esterase Negative (NEGATIVE) 04/26/22 13:45 Urine RBC 3-5 /HPF (0-3) A 04/26/22 13:45 Urine WBC None seen /HPF (0-5) 04/26/22 13:45 Ur Squamous Epith Cells Rare /HPF (NEGATIVE) 04/26/22 13:45 Urine Bacteria Trace /HPF (NEGATIVE) 04/26/22 13:45 Ur Culture Indicated? No/not indicated 04/26/22 13:45 Random Vancomycin 21.4 ug/mL 04/26/22 04:40 Tissue Pathology To follow 04/25/22 12:10 - Assessment and Plan 2: infected traumatic wounds both legs . RT > Lt .. 7x4 cm deep into the sub cut . to change dressing in am with sedation . could be d/c in am and will follow as OP in the office .. - Problem Patient Problems: Patient Problems Cellulitis of left leg (Acute) L03.116 Hypokalemia (Acute) E87.6 Bilateral lower leg cellulitis (Acute) L03.116, L03.115 Generalized weakness (Acute) R53.1 Hypoalbuminemia (Acute) E88.09
[2022-04-26] MEDS ORDERED: LIPITOR TAB 10 MG PO SCH (21:00)
[2022-04-26] MEDS: REQUIP PO SCH (21:25)
[2022-04-27] MEDS: MORPHINE SULFATE INJ 4 MG IVP PRN ×3 (01:31→10:01)
[2022-04-27] MEDS: NS 1,000 ML IV 1,000 ML IV SCH ×2 (02:32→13:32)
[2022-04-27] MEDS ORDERED: CATAPRES TAB 0.1 MG PO ONE (03:45)
[2022-04-27] MEDS ORDERED: CATAPRES TAB 0.1 MG ONE (03:46)
[2022-04-27 05:08] LABS: BASOPHILS % (AUTO) 0.2 % (0.2-1.0); HEMATOCRIT 29.7 % (36.0-47.0); HEMOGLOBIN 10.2 g/dL (12.0-16.0); LYMPHOCYTES # (AUTO) 0.9 X10^3/uL (1.3-2.9); LYMPHOCYTES % (AUTO) 7.2 % (21.0-51.0); MEAN CORPUSCULAR HEMOGLOBIN 32.1 pg (27.0-34.0); MEAN CORPUSCULAR HGB CONC 34.4 g/dL (33.0-35.0); MEAN CORPUSCULAR VOLUME 93.4 fL (80.0-100.0); MEAN PLATELET VOLUME 6.9 fL (7.4-11.0); MONOCYTES # (AUTO) 0.8 x10^3/uL (0.3-0.8); MONOCYTES % (AUTO) 6.5 % (0.0-13.0); NEUTROPHILS # (AUTO) 10.4 x10^3/uL (2.2-4.8); NEUTROPHILS % (AUTO) 86.1 % (42.0-75.0); RED BLOOD COUNT 3.18 X10^6/uL (3.5-5.4); RED CELL DISTRIBUTION WIDTH 14.9 % (11.6-16.5); WHITE BLOOD COUNT 12.1 X10^3/uL (3.6-10.0)
[2022-04-27 05:20] LABS: ALANINE AMINOTRANSFERASE 55 Units/L (12-78); ALKALINE PHOSPHATASE 58 Units/L (46-116); ASPARTATE AMINO TRANSFERASE 52 Units/L (15-37); BLOOD UREA NITROGEN 22 mg/dL (7-18); CALCIUM 8.6 mg/dL (8.5-10.1); CARBON DIOXIDE 21.8 mmol/L (21-32); CHLORIDE 107 mmol/L (98-107); COR CA(FOR HYPOALB) 9.4 mg/dL (8.5-10.1); COR NA(FOR HYPERGLY) 141 mmol/L (136-145); CREATININE 0.79 mg/dL (0.55-1.02); SODIUM 140 mmol/L (136-145); TOTAL PROTEIN 6.1 g/dL (6.4-8.2); eGFR NON BLACK RACES > 60 (>60)
[2022-04-27 05:38] LABS: BAND NEUTROPHILS % 3 % (0-10); PLATELET MORPHOLOGY COMMENT NORMAL (NORMAL)
[2022-04-27] MEDS: ZOSYN VIAL 3.375 GRAMS 3.375 G in NS 100 ML IV 100 ML IV SCH ×2 (05:49→15:18)
--- NOTE | 2022-04-27 08:04 | RAD ---
HISTORYAbdominal painSTUDYChest AP portableCOMPARISONNoneFINDINGSHeart size is normal. Rose are normal. Lung moser are clear. No pleural effusions are identified. Bony thorax is unremarkable.IMPRESSIONNo significant abnormality identifiedElectronically signed by: BHAVESH MARLOW (Apr 27, 2022 08:02:32)
--- NOTE | 2022-04-27 08:05 | RAD ---
HISTORYAbdominal painSTUDYKUBCOMPARISONNoneFIND INGSThe abdominal gas pattern is nonspecific and nonobstructive. No abnormal masses or abnormal calcifications are identified. Regional skeleton is intact.IMPRESSIONUnremarkable KUBElectronically signed by: BHAVESH MARLOW (Apr 27, 2022 08:03:12)
[2022-04-27] MEDS: ALBUMIN HUMAN 25%- 100 ML 100 ML IV SCH (08:07)
[2022-04-27] MEDS: CARDIZEM CD 180 MG 24-HR PO SCH (08:10)
[2022-04-27] MEDS: COREG TAB 6.25 MG PO SCH (08:10)
[2022-04-27] MEDS: K-DUR TAB 20 MEQ PO SCH (08:10)
[2022-04-27] MEDS: LASIX PO SCH (08:10)
[2022-04-27] MEDS: NORVASC TAB 5 MG PO SCH (08:10)
[2022-04-27] MEDS: COZAAR PO SCH (08:10)
[2022-04-27] MEDS: FERROUS GLUCONATE PO SCH (08:11)
[2022-04-27] MEDS: PROTONIX TAB 40 MG PO SCH (08:11)
[2022-04-27] MEDS: PLAVIX PO SCH (08:11)
[2022-04-27] MEDS: VANCOMYCIN IV *PREMIX 1 G/200 ML BAG 1 G/200 ML PIGGYBACK IV SCH (09:55)
[2022-04-27] MEDS ORDERED: DILAUDID INJ IVP ONE (12:50)
[2022-04-27] MEDS ORDERED: DILAUDID INJ ONE (12:55)
[2022-04-27] MEDS ORDERED: VERSED ONE (12:57)
[2022-04-27] MEDS ORDERED: BACTROBAN TOPICAL OINT ONE (13:04)
[2022-04-27 13:47] VITALS: BP 160/68
[2022-04-27] MEDS ORDERED: PHARMACY COMMENT IV NR (20:30)
--- NOTE | 2022-04-27 22:19 | PCM.DCPLAN ---
Discharge Plan - Discharge Plan Disposition: 03 XFER SNF Condition: Stable - Orders to Discharge Patient Discharge Orders: Discharge (Routine); Ordered 04/27/22 Ordered By: Rebel Chacon
== END 2022-04-27 15:34 | DRG 603 ==
LOC: MED/SURG 13:58 → ER 13:58 → OBSVTOIN 17:26 → MED/SURG 18:15
PROVIDERS: ADMIT Internal Medicine; ATTEND Internal Medicine
DX: I25.10 Atherosclerotic heart disease of native coronary artery without angina pectoris; L03.116 Cellulitis of left lower limb; E88.09 Other disorders of plasma-protein metabolism, not elsewhere classified; E78.2 Mixed hyperlipidemia; K21.9 Gastro-esophageal reflux disease without esophagitis; S81.811A Laceration without foreign body, right lower leg, initial encounter; Z91.81 History of falling; B95.62 Methicillin resistant Staphylococcus aureus infection as the cause of diseases classified elsewhere; I10 Essential (primary) hypertension; L03.115 Cellulitis of right lower limb; M19.09 Primary osteoarthritis, other specified site; S81.812A Laceration without foreign body, left lower leg, initial encounter; Z79.01 Long term (current) use of anticoagulants; R53.1 Weakness; R60.0 Localized edema; R94.31 Abnormal electrocardiogram [ECG] [EKG]; W18.39XA Other fall on same level, initial encounter; R26.89 Other abnormalities of gait and mobility; Z20.822 Contact with and (suspected) exposure to COVID-19; E87.6 Hypokalemia

== ENCOUNTER 2024-01-09 19:07 | Inpatient (IN) ==
--- NOTE | 2024-01-09 20:02 | DR.EXTPAIN ---
HPI <Saman Baig - Last Filed: 01/14/24 08:28> Time seen Time Seen by Provider: 01/09/24 19:54 PCP Primary Care Physician: Juan Complaint/Symptoms Chief Complaint Doctor Comments: 83-year-old female presents for evaluation. Patient started with a sore on the right buttock approximately 3 days ago. Area has increased in size, redness and tenderness. No obvious trauma to the area. Denies fever, chills, URI symptoms. Has had generalized weakness. No nausea, vomiting, diarrhea or urinary symptoms. Patient lives by herself. Her son who is with her states she has had numerous falls recently, numerous infections. Was hospitalized for rehab in [place] not too long ago. They are interested in another rehab admission for her. Chief Complaint:: Pt In Ed With Complaints Of a Sore To Sacrum, States It Started About 3 Days Ago Unsure Of Severity. Pt Has Had Increased Weakness With Some Falls Over The Past Few Weeks and Decreased Appetite Family Is Interested In Possible Group Home Placement As PT Lives Alone and Is Unable To Perform Basic ADL's Alone. COVID-19 Coronavirus risk:travel/contact w/high risk person: No Has patient experienced Coronavirus symptoms: No Nurses notes reviewed Nurses Notes Review: Yes Source History Provided: Patient and Family Member Mode of arrival Mode of Arrival: Wheelchair Timing Onset of Chief Complaint: 01/06/24 PMH <Saman Baig - Last Filed: 01/14/24 08:28> PMH Past Medical History: Yes Past Medical History: Coronary Artery Disease, Dyslipidemia, GERD and Hypertension Past Surgical History: Yes Surgical History: Angioplasty/Stents, Hysterectomy and Mastectomy Past Surgical History Comment: Left Breast Mastectomy In 1991 Family History History of Family Medical Conditions: Yes Family Medical History: Cancer, Heart Failure and Hypertension Social History Type of Tobacco Use: None Alcohol Use: None Do you use any recreational Drugs:: No Travel Risk Coronavirus risk:travel/contact w/high risk person: No Has patient experienced Coronavirus symptoms: No Infectious screening Have you traveled outside the country in the last 6 months?: No Isolation: Standard ROS <Saman Baig - Last Filed: 01/14/24 08:28> Review of Systems Constitutional: Weakness Eyes: No Symptoms Reported ENTM: No Symptoms Reported Respiratoy: No Symptoms Reported Cardiovascular: No Symptoms Reported Gastrointestinal/Abdominal: No Symptoms Reported Genitourinary: No Symptoms Reported Neurological: Weakness Musculoskeletal: See HPI Integumentary: See HPI Hematologic/Lymphatic: No Symptoms Reported All Other Systems: Reviewed and Negative PE <Saman Baig - Last Filed: 01/14/24 08:28> Vital Signs Vitals: Vital Signs Temperature 98.2 F Pulse Rate 62 Respiratory Rate 18 Respiratory Rate 20 Blood Pressure 147/65 Blood Pressure 142/65 O2 Sat by Pulse Oximetry 98 General General Appearance: Alert and Other (appears uncomfortable) Eyes Eye exam: PERRL and EOMI ENT ENT Exam: Normal Oropharynx and Mucous Membranes Moist Neck Neck Exam: Normal Inspection Respiratory Respiratory Exam: Normal Lung Sounds Bilat; negative Accessory Muscle Use or Respiratory Distress Cardiovascular Cardiovascular Exam: Regular Rate, Normal Rhythm and Normal Heart Sounds Abdominal Exam Abdominal Exam: Normal Bowel Sounds and Soft; negative Tenderness Extremities Extremities Exam: Normal Inspection; negative Edema Neurological Neurological Exam: Alert, Oriented X3 and CN II-XII Intact; negative Motor Sensory Deficit Skin Skin Exam: Warm, Dry and Other (+ large confluent oval area of R buttock, 14 x 16 cms, with tenderness/induration. Has a 0.5 cm shallow wound of center. ) <Dorota Abdul - Last Filed: 01/09/24 22:39> Vital Signs Vitals: Vital Signs Temperature 98.2 F Pulse Rate 62 Respiratory Rate 18 Respiratory Rate 20 Blood Pressure 147/65 Blood Pressure 142/65 O2 Sat by Pulse Oximetry 98 COURSE <Saman Baig - Last Filed: 01/14/24 08:28> Treatment Treatment: 83-year-old female presents with rapidly worsening cellulitis of her right buttocks over the past 3 days. Has had a history of MRSA in the past. Workup initiated. Patient given IV fluids, baseline labs obtained.. Will treat with IV doxycycline, and recommend admission after her labs come back. Patient will be handed over to my relief physician to complete the work-up. <Dorota Abdul - Last Filed: 01/09/24 22:39> Treatment Treatment: 83-year-old female presents with rapidly worsening cellulitis of her right buttocks over the past 3 days. Has had a history of MRSA in the past. Workup initiated. Patient given IV fluids, baseline labs obtained.. Will treat with IV doxycycline, and recommend admission after her labs come back. Patient will be handed over to my relief physician to complete the work-up. Patient was given IV cefepime 2g iv in the Ed instead of doxycycline. Her labs were reviewed: wbc is 18.7,lactic acid is 2.6,BUN 38/creat 1.99.Patient will be given NS @ 80ml/hr iv. Discussd case with Dr Quiroga.Dr Quiroga has accepted patient to his sevice. He was informed thay Son requested Rehab for patient.Patient has been stable in the ED. ROR <Saman Baig - Last Filed: 01/14/24 08:28> Labs Reviewed 01/14/24 05:45 01/14/24 05:45 Laboratory: 01/09/24 20:13 Blood Blood Culture - Preliminary 01/09/24 20:06 Blood Blood Culture - Preliminary WBC 18.7 X10^3/uL (3.6-10.0) H 01/09/24 20:06 RBC 3.08 X10^6/uL (3.5-5.4) L 01/09/24 20:06 Hgb 9.8 g/dL (12.0-16.0) L 01/09/24 20:06 Hct 29.2 % (36.0-47.0) L 01/09/24 20:06 MCV 94.8 fL (80.0-100.0) 01/09/24 20:06 MCH 31.7 pg (27.0-34.0) 01/09/24 20:06 MCHC 33.5 g/dL (33.0-35.0) 01/09/24 20:06 RDW 15.4 % (11.6-16.5) 01/09/24 20:06 Plt Count 183 X10^3/uL (150.0-450.0) 01/09/24 20:06 Plt Count Comment Adequate (ADEQUATE) 01/09/24 20:06 MPV 7.2 fL (7.4-11.0) L 01/09/24 20:06 Neut % (Auto) 90.5 % (42.0-75.0) H 01/09/24 20:06 Lymph % (Auto) 3.3 % (21.0-51.0) L 01/09/24 20:06 [place] % (Auto) 6.0 % (0.0-13.0) 01/09/24 20:06 Eos % (Auto) 0.0 % (0.9-2.9) L 01/09/24 20:06 Baso % (Auto) 0.2 % (0.2-1.0) 01/09/24 20:06 Neut # (Auto) 16.9 x10^3/uL (2.2-4.8) H 01/09/24 20:06 Lymph # (Auto) 0.6 X10^3/uL (1.3-2.9) L 01/09/24 20:06 [place] # (Auto) 1.1 x10^3/uL (0.3-0.8) H 01/09/24 20:06 Eos # (Auto) 0.0 x10^3/uL (0.0-0.2) 01/09/24 20:06 Baso # (Auto) 0.0 X10^3/uL (0.0-0.1) 01/09/24 20:06 Absolute Nucleated RBC 0.0 /100WBC 01/09/24 20:06 Total Counted 100 01/09/24 20:06 Neutrophils % (Manual) 91 % (39-76) H 01/09/24 20:06 Lymphocytes % (Manual) 4 % (13-43) L 01/09/24 20:06 Monocytes % (Manual) 5 % (4-9) 01/09/24 20:06 Plt Morphology Comment Normal (NORMAL) 01/09/24 20:06 RBC Morphology Normal (NORMAL) 01/09/24 20:06 Sodium 133 mmol/L (136-145) L 01/09/24 20:06 Corrected Sodium 134 mmol/L (136-145) L 01/09/24 20:06 Potassium 3.5 mmol/L (3.5-5.1) 01/09/24 20:06 Chloride 97 mmol/L (98-107) L 01/09/24 20:06 Carbon Dioxide 23.0 mmol/L (21-32) 01/09/24 20:06 BUN 38 mg/dL (7-18) H 01/09/24 20:06 Creatinine 1.99 mg/dL (0.55-1.02) H 01/09/24 20:06 Est GFR (MDRD) Af Amer 31 (>60) L 01/09/24 20:06 Est GFR (MDRD) Non-Af 25 (>60) L 01/09/24 20:06 Glucose 126 mg/dL (65-99) H 01/09/24 20:06 Lactic Acid 1.7 mmol/L (0.4-2.0) 01/09/24 22:00 Calcium 8.3 mg/dL (8.5-10.1) L 01/09/24 20:06 Corrected Calcium 9.8 mg/dL (8.5-10.1) 01/09/24 20:06 Total Bilirubin 0.70 mg/dL (0.2-1.0) 01/09/24 20:06 AST 33 Units/L (15-37) 01/09/24 20:06 ALT 18 Units/L (12-78) 01/09/24 20:06 Alkaline Phosphatase 85 Units/L (46-116) 01/09/24 20:06 Total Protein 6.1 g/dL (6.4-8.2) L 01/09/24 20:06 Albumin 2.1 g/dL (3.4-5.0) L 01/09/24 20:06 Globulin 4.0 g/dL (2.5-4.5) 01/09/24 20:06 Albumin/Globulin Ratio 0.5 Ratio (1.1-2.1) L 01/09/24 20:06 Lipase 28 Units/L (16-77) 01/09/24 20:06 Specimen Type Clean catch urine 01/09/24 21:35 Urine Color Yellow (YELLOW) 01/09/24 21:35 Urine Appearance Clear (CLEAR) 01/09/24 21:35 Urine pH 5.0 (5.0 - 8.0) 01/09/24 21:35 Ur Specific [place] 1.020 (1.000-1.030) 01/09/24 21:35 Urine Protein 2+ (NEGATIVE) 01/09/24 21:35 Urine Glucose (UA) Negative (NEGATIVE) 01/09/24 21:35 Urine Ketones Negative (NEGATIVE) 01/09/24 21:35 Urine Blood Negative (NEGATIVE) 01/09/24 21: Urine Nitrite Negative (NEGATIVE) 01/09/24 21:35 Urine Bilirubin Negative (NEGATIVE) 01/09/24 21:35 Urine Urobilinogen Normal (NORMAL) 01/09/24 21:35 Ur Leukocyte Esterase 1+ (NEGATIVE) 01/09/24 21:35 Urine RBC 0-2 /HPF (0-3) 01/09/24 21:35 Urine WBC 3-5 /HPF (0-5) 01/09/24 21:35 Ur Squamous Epith Cells Moderate /HPF (NEGATIVE) 01/09/24 21:35 Amorphous Sediment 1+ /HPF (NEGATIVE) 01/09/24 21:35 Urine Bacteria Trace /HPF (NEGATIVE) 01/09/24 21:35 Hyaline Casts Few /LPF (NEGATIVE) 01/09/24 21:35 Ur Culture Indicated? No/not indicated 01/09/24 21:35 <Dorota Abdul - Last Filed: 01/09/24 22:39> Labs Reviewed Laboratory: 01/09/24 20:13 Blood Blood Culture - Preliminary 01/09/24 20:06 Blood Blood Culture - Preliminary WBC 18.7 X10^3/uL (3.6-10.0) H 01/09/24 20:06 RBC 3.08 X10^6/uL (3.5-5.4) L 01/09/24 20:06 Hgb 9.8 g/dL (12.0-16.0) L 01/09/24 20:06 Hct 29.2 % (36.0-47.0) L 01/09/24 20:06 MCV 94.8 fL (80.0-100.0) 01/09/24 20:06 MCH 31.7 pg (27.0-34.0) 01/09/24 20:06 MCHC 33.5 g/dL (33.0-35.0) 01/09/24 20:06 RDW 15.4 % (11.6-16.5) 01/09/24 20:06 Plt Count 183 X10^3/uL (150.0-450.0) 01/09/24 20:06 Plt Count Comment Adequate (ADEQUATE) 01/09/24 20:06 MPV 7.2 fL (7.4-11.0) L 01/09/24 20:06 Neut % (Auto) 90.5 % (42.0-75.0) H 01/09/24 20:06 Lymph % (Auto) 3.3 % (21.0-51.0) L 01/09/24 20:06 [place] % (Auto) 6.0 % (0.0-13.0) 01/09/24 20:06 Eos % (Auto) 0.0 % (0.9-2.9) L 01/09/24 20:06 Baso % (Auto) 0.2 % (0.2-1.0) 01/09/24 20:06 Neut # (Auto) 16.9 x10^3/uL (2.2-4.8) H 01/09/24 20:06 Lymph # (Auto) 0.6 X10^3/uL (1.3-2.9) L 01/09/24 20:06 [place] # (Auto) 1.1 x10^3/uL (0.3-0.8) H 01/09/24 20:06 Eos # (Auto) 0.0 x10^3/uL (0.0-0.2) 01/09/24 20:06 Baso # (Auto) 0.0 X10^3/uL (0.0-0.1) 01/09/24 20:06 Absolute Nucleated RBC 0.0 /100WBC 01/09/24 20:06 Total Counted 100 01/09/24 20:06 Neutrophils % (Manual) 91 % (39-76) H 01/09/24 20:06 Lymphocytes % (Manual) 4 % (13-43) L 01/09/24 20:06 Monocytes % (Manual) 5 % (4-9) 01/09/24 20:06 Plt Morphology Comment Normal (NORMAL) 01/09/24 20:06 RBC Morphology Normal (NORMAL) 01/09/24 20:06 Sodium 133 mmol/L (136-145) L 01/09/24 20:06 Corrected Sodium 134 mmol/L (136-145) L 01/09/24 20:06 Potassium 3.5 mmol/L (3.5-5.1) 01/09/24 20:06 Chloride 97 mmol/L (98-107) L 01/09/24 20:06 Carbon Dioxide 23.0 mmol/L (21-32) 01/09/24 20:06 BUN 38 mg/dL (7-18) H 01/09/24 20:06 Creatinine 1.99 mg/dL (0.55-1.02) H 01/09/24 20:06 Est GFR (MDRD) Af Amer 31 (>60) L 01/09/24 20:06 Est GFR (MDRD) Non-Af 25 (>60) L 01/09/24 20:06 Glucose 126 mg/dL (65-99) H 01/09/24 20:06 Lactic Acid 1.7 mmol/L (0.4-2.0) 01/09/24 22:00 Calcium 8.3 mg/dL (8.5-10.1) L 01/09/24 20:06 Corrected Calcium 9.8 mg/dL (8.5-10.1) 01/09/24 20:06 Total Bilirubin 0.70 mg/dL (0.2-1.0) 01/09/24 20:06 AST 33 Units/L (15-37) 01/09/24 20:06 ALT 18 Units/L (12-78) 01/09/24 20:06 Alkaline Phosphatase 85 Units/L (46-116) 01/09/24 20:06 Total Protein 6.1 g/dL (6.4-8.2) L 01/09/24 20:06 Albumin 2.1 g/dL (3.4-5.0) L 01/09/24 20:06 Globulin 4.0 g/dL (2.5-4.5) 01/09/24 20:06 Albumin/Globulin Ratio 0.5 Ratio (1.1-2.1) L 01/09/24 20:06 Lipase 28 Units/L (16-77) 01/09/24 20:06 Specimen Type Clean catch urine 01/09/24 21:35 Urine Color Yellow (YELLOW) 01/09/24 21:35 Urine Appearance Clear (CLEAR) 01/09/24 21:35 Urine pH 5.0 (5.0 - 8.0) 01/09/24 21:35 Ur Specific [place] 1.020 (1.000-1.030) 01/09/24 21:35 Urine Protein 2+ (NEGATIVE) 01/09/24 21:35 Urine Glucose (UA) Negative (NEGATIVE) 09/12/24 21:35 Urine Ketones Negative (NEGATIVE) 01/09/24 21:35 Urine Blood Negative (NEGATIVE) 01/09/24 21:35 Urine Nitrite Negative (NEGATIVE) 01/09/24 21:35 Urine Bilirubin Negative (NEGATIVE) 01/09/24 21:35 Urine Urobilinogen Normal (NORMAL) 01/09/24 21:35 Ur Leukocyte Esterase 1+ (NEGATIVE) 01/09/24 21:35 Urine RBC 0-2 /HPF (0-3) 01/09/24 21:35 Urine WBC 3-5 /HPF (0-5) 01/09/24 21:35 Ur Squamous Epith Cells Moderate /HPF (NEGATIVE) 01/09/24 21:35 Amorphous Sediment 1+ /HPF (NEGATIVE) 01/09/24 21:35 Urine Bacteria Trace /HPF (NEGATIVE) 01/09/24 21:35 Hyaline Casts Few /LPF (NEGATIVE) 01/09/24 21:35 Ur Culture Indicated? No/not indicated 01/09/24 21:35 Opioid <Saman Baig - Last Filed: 01/14/24 08:28> Opioid Risk Tool Age ([place] box if 16-45): No History of Preadolescent Sexual Abuse: No Total: 0 Total Score Risk Category: Low Risk Copyright: Demar BERRIOS predicting aberrant behaviors <Dorota Abdul - Last Filed: 01/09/24 22:39> Opioid Risk Tool Total: 0 Total Score Risk Category: Low Risk Discharge Plan Diagnosis Discharge Problem: Abscess, gluteal, right, ARLEEN (acute kidney injury) Discharge Plan Patient Disposition: ADMITTED INPATIENT Condition: Stable
[2024-01-09] MEDS: NS 500 ML IV 500 ML IV ONE (20:08)
[2024-01-09 20:19] VITALS: BMI 22.5
[2024-01-09 20:20] LABS: LYMPHOCYTES # (AUTO) 0.6 X10^3/uL (1.3-2.9); MEAN PLATELET VOLUME 7.2 fL (7.4-11.0)
[2024-01-09 20:23] LABS: BASOPHILS % (AUTO) 0.2 % (0.2-1.0); HEMATOCRIT 29.2 % (36.0-47.0); HEMOGLOBIN 9.8 g/dL (12.0-16.0); LYMPHOCYTES % (AUTO) 3.3 % (21.0-51.0); MEAN CORPUSCULAR HEMOGLOBIN 31.7 pg (27.0-34.0); MEAN CORPUSCULAR HGB CONC 33.5 g/dL (33.0-35.0); MEAN CORPUSCULAR VOLUME 94.8 fL (80.0-100.0); MONOCYTES # (AUTO) 1.1 x10^3/uL (0.3-0.8); NEUTROPHILS # (AUTO) 16.9 x10^3/uL (2.2-4.8); NEUTROPHILS % (AUTO) 90.5 % (42.0-75.0); PLATELET COUNT 183 X10^3/uL (150.0-450.0); RED BLOOD COUNT 3.08 X10^6/uL (3.5-5.4); RED CELL DISTRIBUTION WIDTH 15.4 % (11.6-16.5); WHITE BLOOD COUNT 18.7 X10^3/uL (3.6-10.0)
[2024-01-09] MEDS: MAXIPIME VIAL 2 GRAMS 2 G in NS 100 ML IV 100 ML IV PRN (20:28)
[2024-01-09] MEDS: TORADOL 30 MG VIAL IVP ONE (20:32)
[2024-01-09 20:33] LABS: ALBUMIN 2.1 g/dL (3.4-5.0); CALCIUM 8.3 mg/dL (8.5-10.1); COR CA(FOR HYPOALB) 9.8 mg/dL (8.5-10.1); CREATININE 1.99 mg/dL (0.55-1.02); POTASSIUM 3.5 mmol/L (3.5-5.1); TOTAL PROTEIN 6.1 g/dL (6.4-8.2)
[2024-01-09 20:36] LABS: PLATELET MORPHOLOGY COMMENT NORMAL (NORMAL)
[2024-01-09] MEDS: VIBRAMYCIN 100 MG in D5W 250 ML IV 250 ML IV ONE (20:40)
[2024-01-09 21:50] LABS: BILIRUBIN,URINE NEGATIVE (NEGATIVE); BLOOD/HEMOGLOBIN,URINE NEGATIVE (NEGATIVE); GLUCOSE, URINE NEGATIVE (NEGATIVE); KETONES,URINE NEGATIVE (NEGATIVE); LEUKOCYTE ESTERASE ,URINE 1+ (NEGATIVE); NITRITES,URINE NEGATIVE (NEGATIVE); PROTEIN,URINE 2+ (NEGATIVE); UROBILINOGEN,URINE NORMAL (NORMAL)
[2024-01-09 21:58] LABS: APPEARANCE,URINE CLEAR (CLEAR); COLOR,URINE YELLOW (YELLOW)
[2024-01-09 21:59] LABS: BACTERIA,URINE TRACE /HPF (NEGATIVE); HYALINE CASTS, URINE FEW /LPF (NEGATIVE); RBC,URINE 0-2 /HPF (0-3); SQUAMOUS EPITHELIAL CELL,UR MODERATE /HPF (NEGATIVE)
[2024-01-09] MEDS: NS 1,000 ML IV 1,000 ML IV SCH (23:42)
[2024-01-10 06:32] LABS: BASOPHILS % (AUTO) 0.1 % (0.2-1.0); HEMATOCRIT 25.6 % (36.0-47.0); HEMOGLOBIN 8.7 g/dL (12.0-16.0); LYMPHOCYTES # (AUTO) 0.4 X10^3/uL (1.3-2.9); LYMPHOCYTES % (AUTO) 2.8 % (21.0-51.0); MEAN CORPUSCULAR VOLUME 94.4 fL (80.0-100.0); MEAN PLATELET VOLUME 7.3 fL (7.4-11.0); MONOCYTES # (AUTO) 0.6 x10^3/uL (0.3-0.8); MONOCYTES % (AUTO) 4.5 % (0.0-13.0); NEUTROPHILS # (AUTO) 11.6 x10^3/uL (2.2-4.8); NEUTROPHILS % (AUTO) 92.6 % (42.0-75.0); PLATELET COUNT 142 X10^3/uL (150.0-450.0); RED BLOOD COUNT 2.71 X10^6/uL (3.5-5.4); RED CELL DISTRIBUTION WIDTH 15.3 % (11.6-16.5); WHITE BLOOD COUNT 12.5 X10^3/uL (3.6-10.0)
[2024-01-10 06:46] LABS: ALBUMIN 1.7 g/dL (3.4-5.0); CALCIUM 8.2 mg/dL (8.5-10.1); CARBON DIOXIDE 23.4 mmol/L (21-32); CREATININE 1.6 mg/dL (0.55-1.02); POTASSIUM 3.6 mmol/L (3.5-5.1); TOTAL PROTEIN 5.3 g/dL (6.4-8.2)
[2024-01-10 06:52] LABS: BAND NEUTROPHILS % 13 % (0-10); PLATELET MORPHOLOGY COMMENT NORMAL (NORMAL)
--- NOTE | 2024-01-10 07:01 | RAD ---
EXAM:CHEST, 1 VIEWHISTORY:Sore To Sacrum, States It Started About 3 Days Ago Unsure Of Severity. Pt Has Had Increased Weakness With Some Falls Over The Past Few Weeks and Decreased Appetite;COMPARISON:11/10/2023FINDINGS:T he trachea is midline. The cardiac silhouette is unremarkable . The lungs are clear without focal infiltrate or effusion. The bony thorax is unremarkable.IMPRESSION:No acute cardiopulmonary disease.THIS IS AN ELECTRONICALLY VERIFIED FINAL REPORT01/10/2024 6:57 AM - Electronically signed by Godfrey Beebe MD
[2024-01-10] MEDS: TORADOL 30 MG VIAL ONE (07:10)
[2024-01-10] MEDS: COZAAR PO SCH (08:57)
[2024-01-10] MEDS: KLOR-CON 10 MEQ TAB PO SCH (08:57)
[2024-01-10] MEDS: VIBRAMYCIN 100 MG in D5W 250 ML IV 250 ML IV SCH (08:57)
[2024-01-10] MEDS: PLAVIX PO SCH (08:57)
[2024-01-10] MEDS: COREG TAB 12.5 MG PO SCH (08:58)
[2024-01-10] MEDS: CARDIZEM CD 180 MG 24-HR PO SCH (08:58)
[2024-01-10] MEDS: PROTONIX TAB 40 MG PO SCH (08:58)
[2024-01-10] MEDS: LIPITOR TAB 40 MG PO SCH (08:58)
[2024-01-10] MEDS: APRESOLINE TAB 10 MG PO SCH (08:58)
[2024-01-10] MEDS ORDERED: MAXIPIME VIAL 2 GRAMS 2 G in NS 100 ML IV 100 ML IV SCH (09:00)
--- NOTE | 2024-01-10 11:11 | DR.H&P ---
H&P History & Physical for Day of: H&P Date: 01/10/24 Chief Complaint Chief Complaint: Sore on buttocks History of Present Illness History of Present Illness: Patient presented from home to the ER with worsening leg weakness, pain in her right buttocks, and malaise. Found to be septic secondary to a right gluteal abscess and cellulitis. Given IV Doxy and cefepime in the ER. White count this morning improved. Hemoglobin catarina. Blood pressure elevated. Kidney function improving. Patient requesting go to subacute rehab at discharge. She is agreeable to staying here for IV therapy. Wound within open, scabbed area but no drainage. Nurses have marked the wound with a little bit of extending erythema overnight. Vitals reviewed. Labs reviewed. Well-developed, well-nourished, elderly female in no acute distress. Eating breakfast. Head NCAT. Hearing intact conversation. Extraocular movements grossly normal. Heart regular rate and rhythm. Lungs are clear with strong speech. Belly is soft and nontender with bowel sounds present. Able to move all extremities but weak in her legs compared to her arms. Right buttocks almost completely covered and erythema that is tender to palpation. Mood and affect are appropriate. Other visualized skin appears appropriate with decreased turgor. Past Medical History Past Medical History: Coronary Artery Disease, Dyslipidemia, GERD and Hypertension Past Surgical History Surgical History: Angioplasty/Stents, Hysterectomy and Mastectomy Family History Family Medical History: Coronary Artery Disease and Hypertension Social History Does patient currently use any type of tobacco product: No Type of Tobacco Use: None Does any household member use tobacco: No Alcohol Use: None Drug Use: None Medications Home Medications: Home Medications Medication Instructions Recorded Confirmed Type atorvastatin 40 mg tablet 40 mg PO QDAY 01/09/24 01/09/24 History carvedilol 12.5 mg tablet 12.5 mg PO BID 01/09/24 01/09/24 History clopidogrel 75 mg tablet 75 mg PO QDAY 01/09/24 01/09/24 History diltiazem HCl 180 mg 180 mg PO QDAY 01/09/24 01/09/24 History capsule,extended release 24 hr docusate sodium 100 mg capsule 100 mg PO QDAY PRN 01/09/24 01/09/24 History hydralazine 10 mg tablet 10 mg PO BID 01/09/24 01/09/24 History losartan 100 mg tablet 100 mg PO QDAY 01/09/24 01/09/24 History pantoprazole 40 mg tablet,delayed 40 mg PO QDAY 01/09/24 01/09/24 History release potassium chloride 10 mEq 10 meq PO QDAY 01/09/24 01/09/24 History tablet,extended release(part/cryst) tramadol 50 mg tablet 100 mg PO Q6H PRN 01/09/24 01/09/24 History Allergies Allergies Allergy/AdvReac Type Severity Reaction Status Date / Time ciprofloxacin [From Cipro] Allergy Verified 06/09/23 10:32 clindamycin Allergy Verified 06/09/23 10:32 codeine Allergy Verified 06/09/23 10:32 nitrofurantoin Allergy Verified 06/09/23 10:32 [From Macrobid] Labs 01/10/24 05:42 01/10/24 05:42 Labs: Laboratory WBC 12.5 X10^3/uL (3.6-10.0) H 01/10/24 05:42 RBC 2.71 X10^6/uL (3.5-5.4) L 01/10/24 05:42 Hgb 8.7 g/dL (12.0-16.0) L 01/10/24 05:42 Hct 25.6 % (36.0-47.0) L 01/10/24 05:42 MCV 94.4 fL (80.0-100.0) 01/10/24 05:42 MCH 32.0 pg (27.0-34.0) 01/10/24 05:42 MCHC 34.0 g/dL (33.0-35.0) 01/10/24 05:42 RDW 15.3 % (11.6-16.5) 01/10/24 05:42 Plt Count 142 X10^3/uL (150.0-450.0) L 01/10/24 05:42 Plt Count Comment Decreased (ADEQUATE) A 01/10/24 05:42 MPV 7.3 fL (7.4-11.0) L 01/10/24 05:42 Neut % (Auto) 92.6 % (42.0-75.0) H 01/10/24 05:42 Lymph % (Auto) 2.8 % (21.0-51.0) L 01/10/24 05:42 [place] % (Auto) 4.5 % (0.0-13.0) 01/10/24 05:42 Eos % (Auto) 0.0 % (0.9-2.9) L 01/10/24 05:42 Baso % (Auto) 0.1 % (0.2-1.0) L 01/10/24 05:42 Neut # (Auto) 11.6 x10^3/uL (2.2-4.8) H 01/10/24 05:42 Lymph # (Auto) 0.4 X10^3/uL (1.3-2.9) L 01/10/24 05:42 [place] # (Auto) 0.6 x10^3/uL (0.3-0.8) 01/10/24 05:42 Eos # (Auto) 0.0 x10^3/uL (0.0-0.2) 01/10/24 05:42 Baso # (Auto) 0.0 X10^3/uL (0.0-0.1) 01/10/24 05:42 Absolute Nucleated RBC 0.0 /100WBC 01/10/24 05:42 Total Counted 100 01/10/24 05:42 Neutrophils % (Manual) 83 % (39-76) H 01/10/24 05:42 Band Neutrophils % 13 % (0-10) H 01/10/24 05:42 Lymphocytes % (Manual) 1 % (13-43) L 01/10/24 05:42 Monocytes % (Manual) 3 % (4-9) L 01/10/24 05:42 Plt Morphology Comment Normal (NORMAL) 01/10/24 05:42 RBC Morphology Normal (NORMAL) 01/10/24 05:42 Sodium 135 mmol/L (136-145) L 01/10/24 05:42 Corrected Sodium 137 mmol/L (136-145) 01/10/24 05:42 Potassium 3.6 mmol/L (3.5-5.1) 01/10/24 05:42 Chloride 102 mmol/L (98-107) 01/10/24 05:42 Carbon Dioxide 23.4 mmol/L (21-32) 01/10/24 05:42 BUN 39 mg/dL (7-18) H 01/10/24 05:42 Creatinine 1.60 mg/dL (0.55-1.02) H 01/10/24 05:42 Est GFR (MDRD) Af Amer 40 (>60) L 01/10/24 05:42 Est GFR (MDRD) Non-Af 33 (>60) L 01/10/24 05:42 Glucose 185 mg/dL (65-99) H 01/10/24 05:42 Lactic Acid 1.7 mmol/L (0.4-2.0) 01/09/24 22:00 Calcium 8.2 mg/dL (8.5-10.1) L 01/10/24 05:42 Corrected Calcium 10.0 mg/dL (8.5-10.1) 01/10/24 05:42 Total Bilirubin 0.30 mg/dL (0.2-1.0) 01/10/24 05:42 AST 30 Units/L (15-37) 01/10/24 05:42 ALT 18 Units/L (12-78) 01/10/24 05:42 Alkaline Phosphatase 75 Units/L (46-116) 01/10/24 05:42 Total Protein 5.3 g/dL (6.4-8.2) L 01/10/24 05:42 Albumin 1.7 g/dL (3.4-5.0) L 01/10/24 05:42 Globulin 3.6 g/dL (2.5-4.5) 01/10/24 05:42 Albumin/Globulin Ratio 0.5 Ratio (1.1-2.1) L 01/10/24 05:42 Lipase 28 Units/L (16-77) 01/09/24 20:06 Specimen Type Clean catch urine 01/09/24 21:35 Urine Color Yellow (YELLOW) 01/09/24 21:35 Urine Appearance Clear (CLEAR) 01/09/24 21:35 Urine pH 5.0 (5.0 - 8.0) 01/09/24 21:35 Ur Specific [place] 1.020 (1.000-1.030) 01/09/24 21:35 Urine Protein 2+ (NEGATIVE) 01/09/24 21:35 Urine Glucose (UA) Negative (NEGATIVE) 01/09/24 21:35 Urine Ketones Negative (NEGATIVE) 01/09/24 21:35 Urine Blood Negative (NEGATIVE) 01/09/24 21:35 Urine Nitrite Negative (NEGATIVE) 01/09/24 21:35 Urine Bilirubin Negative (NEGATIVE) 01/09/24 21:35 Urine Urobilinogen Normal (NORMAL) 01/09/24 21:35 Ur Leukocyte Esterase 1+ (NEGATIVE) 01/09/24 21:35 Urine RBC 0-2 /HPF (0-3) 01/09/24 21:35 Urine WBC 3-5 /HPF (0-5) 01/09/24 21:35 Ur Squamous Epith Cells Moderate /HPF (NEGATIVE) 01/09/24 21:35 Amorphous Sediment 1+ /HPF (NEGATIVE) 01/09/24 21:35 Urine Bacteria Trace /HPF (NEGATIVE) 01/09/24 21:35 Hyaline Casts Few /LPF (NEGATIVE) 01/09/24 21:35 Ur Culture Indicated? No/not indicated 01/09/24 21:35 Physical Exam Vital Signs: Vital Signs Temperature 98.3 F Temperature 97.8 F Pulse Rate [Bilateral Radial] 65 Pulse Rate [Bilateral Radial] 65 Respiratory Rate 20 Respiratory Rate 18 Blood Pressure [Left Arm] 154/70 Blood Pressure [Left Arm] 151/68 O2 Sat by Pulse Oximetry 98 O2 Sat by Pulse Oximetry 99 Assessment/Plan (1) Severe sepsis: Narrative Support Text: Improving. Continue IV doxycycline and IV fluids. Push p.o. as well. Status: Acute (2) Acute anemia: Narrative Support Text: Monitor closely. Transfuse to keep greater than 7. Status: Acute (3) ARLEEN (acute kidney injury): Narrative Support Text: Improving. Continue p.o. and IV hydration. Status: Acute (4) Abscess, gluteal, right: Narrative Support Text: See above. Status: Acute (5) Essential (primary) hypertension: Narrative Support Text: Per protocol. Consider addition of amlodipine or increasing Coreg. Status: Acute (6) Frequent falls: Narrative Support Text: PT and OT as tolerated. Plan for subacute rehab at discharge. Status: Acute (7) Atherosclerotic heart disease of [place] coronary artery without angina pectoris: Qualifiers: [place] vs. transplanted heart: [place] heart Qualified Code(s): I25.10 - Atherosclerotic heart disease of [place] coronary artery without angina pectoris Narrative Support Text: Monitor for changes. Get better BP control. Status: Acute (8) Mixed hyperlipidemia: Narrative Support Text: Continue statin. Status: Acute (9) PSVT (paroxysmal supraventricular tachycardia): Narrative Support Text: Continue diltiazem. Status: Acute
[2024-01-10] MEDS: MORPHINE SULFATE INJ 2 MG INJ IVP PRN (14:58)
[2024-01-11 05:07] LABS: BASOPHILS % (AUTO) 0.1 % (0.2-1.0); EOSINOPHILS % (AUTO) 0.1 % (0.9-2.9); HEMATOCRIT 25.6 % (36.0-47.0); HEMOGLOBIN 8.6 g/dL (12.0-16.0); LYMPHOCYTES # (AUTO) 0.3 X10^3/uL (1.3-2.9); LYMPHOCYTES % (AUTO) 2.9 % (21.0-51.0); MEAN CORPUSCULAR HGB CONC 33.7 g/dL (33.0-35.0); MEAN CORPUSCULAR VOLUME 94.7 fL (80.0-100.0); MEAN PLATELET VOLUME 7.4 fL (7.4-11.0); MONOCYTES # (AUTO) 0.4 x10^3/uL (0.3-0.8); MONOCYTES % (AUTO) 4.3 % (0.0-13.0); NEUTROPHILS # (AUTO) 9.2 x10^3/uL (2.2-4.8); NEUTROPHILS % (AUTO) 92.6 % (42.0-75.0); PLATELET COUNT 149 X10^3/uL (150.0-450.0); RED CELL DISTRIBUTION WIDTH 15.3 % (11.6-16.5)
[2024-01-11 05:19] LABS: ALBUMIN 1.6 g/dL (3.4-5.0); CALCIUM 8.2 mg/dL (8.5-10.1); CARBON DIOXIDE 22.5 mmol/L (21-32); COR CA(FOR HYPOALB) 10.1 mg/dL (8.5-10.1); CREATININE 1.19 mg/dL (0.55-1.02); MAGNESIUM 1.6 mg/dL (2.0-2.9); POTASSIUM 3.5 mmol/L (3.5-5.1); TOTAL PROTEIN 5.4 g/dL (6.4-8.2)
[2024-01-11 05:26] LABS: BAND NEUTROPHILS % 2 % (0-10); PLATELET MORPHOLOGY COMMENT NORMAL (NORMAL)
[2024-01-11] MEDS ORDERED: CONSULT PHARMACY - POTASSIUM & MAGNESIUM XX SCH (07:00)
[2024-01-11] MEDS: MAG-OX TAB PO SCH (08:49)
[2024-01-11] MEDS: K-DUR TAB 20 MEQ PO ONE (10:13)
[2024-01-11] MEDS ORDERED: NS 250 ML IV 25 ML IV PRN (10:37)
[2024-01-11] MEDS: OMNIPAQUE 350 mg/mL 100 mL BTL 100 ML ONE (11:10)
--- NOTE | 2024-01-11 11:11 | PCM.PROG ---
Progress Note Progress Note for Day of Date of Exam: 01/11/24 Subjective Subjective: Patient seen at bedside, no acute events overnight. She is complaining of severe pain in the right buttock area. She is currently admitted for right gluteal abscess and cellulitis. She is on doxycycline. She reports increased pain and discomfort since yesterday. Her redness has increased past the markings. No drainage noted. Labs/imaging reviewed: -WBC 10 Hgb 8.6 Plt 149 K 3.5 Mag 1.6 BUN/Cr 28/1.19 Plan: Will get stat CT-pelvis to evaluate further, add Zosyn. Continue doxycyline. Continue hydration. Continue pain control. Follow pending cultures. Replace electrolytes as per protocol. Continue home medications. Monitor AM labs/imaging. Past Medical Family Social History Allergies: Allergies ciprofloxacin [From Cipro] Allergy (Verified 06/09/23 10:32) clindamycin Allergy (Verified 06/09/23 10:32) codeine Allergy (Verified 06/09/23 10:32) nitrofurantoin [From Macrobid] Allergy (Verified 06/09/23 10:32) Vital Signs and I&O's Vital Signs: Vital Signs Temperature 98.2 F Temperature 98.2 F Pulse Rate [Bilateral Radial] 62 Pulse Rate [Bilateral Radial] 62 Respiratory Rate 18 Respiratory Rate 20 Respiratory Rate 20 Blood Pressure [Left Arm] 202/83 Blood Pressure [Left Arm] 150/69 O2 Sat by Pulse Oximetry 98 O2 Sat by Pulse Oximetry 97 Intake and Output: Intake & Output 01/08/24 01/09/24 01/10/24 01/11/24 23:59 23:59 23:59 23:59 Intake Total 3190 / 3190 666 / 666 Balance 3190 / 3190 666 / 666 Physical Exam Oriented: Normal Eyes: Normal Respiratory: Normal Cardiovascular: Normal Auscultation: Bowel Sounds: Normal Palpation: Normal Tenderness: Normal Skin: Red, Tender (right buttock area - erythema over the markings, warm, tender) and Hot Musculoskeletal: Right and Leg Psychiatric: Normal Mood Description: Appropriate Affect: Normal Speech Pattern: Clear and Appropriate Laboratory and Diagnostics 01/11/24 04:10 01/11/24 04:10 Labs: 01/09/24 20:13 Blood Blood Culture - Preliminary 01/09/24 20:06 Blood Blood Culture - Preliminary Laboratory WBC 10.0 X10^3/uL (3.6-10.0) 01/11/24 04:10 RBC 2.70 X10^6/uL (3.5-5.4) L 01/11/24 04:10 Hgb 8.6 g/dL (12.0-16.0) L 01/11/24 04:10 Hct 25.6 % (36.0-47.0) L 01/11/24 04:10 MCV 94.7 fL (80.0-100.0) 01/11/24 04:10 MCH 32.0 pg (27.0-34.0) 01/11/24 04:10 MCHC 33.7 g/dL (33.0-35.0) 01/11/24 04:10 RDW 15.3 % (11.6-16.5) 01/11/24 04:10 Plt Count 149 X10^3/uL (150.0-450.0) L 01/11/24 04:10 Plt Count Comment Decreased (ADEQUATE) A 01/11/24 04:10 MPV 7.4 fL (7.4-11.0) 01/11/24 04:10 Neut % (Auto) 92.6 % (42.0-75.0) H 01/11/24 04:10 Lymph % (Auto) 2.9 % (21.0-51.0) L 01/11/24 04:10 [place] % (Auto) 4.3 % (0.0-13.0) 01/11/24 04:10 Eos % (Auto) 0.1 % (0.9-2.9) L 01/11/24 04:10 Baso % (Auto) 0.1 % (0.2-1.0) L 01/11/24 04:10 Neut # (Auto) 9.2 x10^3/uL (2.2-4.8) H 01/11/24 04:10 Lymph # (Auto) 0.3 X10^3/uL (1.3-2.9) L 01/11/24 04:10 [place] # (Auto) 0.4 x10^3/uL (0.3-0.8) 01/11/24 04:10 Eos # (Auto) 0.0 x10^3/uL (0.0-0.2) 01/11/24 04:10 Baso # (Auto) 0.0 X10^3/uL (0.0-0.1) 01/11/24 04:10 Absolute Nucleated RBC 0.0 /100WBC 01/11/24 04:10 Total Counted 100 01/11/24 04:10 Neutrophils % (Manual) 91 % (39-76) H 01/11/24 04:10 Band Neutrophils % 2 % (0-10) 01/11/24 04:10 Lymphocytes % (Manual) 2 % (13-43) L 01/11/24 04:10 Monocytes % (Manual) 5 % (4-9) 01/11/24 04:10 Plt Morphology Comment Normal (NORMAL) 01/11/24 04:10 RBC Morphology Normal (NORMAL) 01/11/24 04:10 Sodium 138 mmol/L (136-145) 01/11/24 04:10 Corrected Sodium 139 mmol/L (136-145) 01/11/24 04:10 Potassium 3.5 mmol/L (3.5-5.1) 01/11/24 04:10 Chloride 106 mmol/L (98-107) 01/11/24 04:10 Carbon Dioxide 22.5 mmol/L (21-32) 01/11/24 04:10 BUN 28 mg/dL (7-18) H 01/11/24 04:10 Creatinine 1.19 mg/dL (0.55-1.02) H 01/11/24 04:10 Est GFR (MDRD) Af Amer 56 (>60) L 01/11/24 04:10 Est GFR (MDRD) Non-Af 46 (>60) L 01/11/24 04:10 Glucose 133 mg/dL (65-99) H 01/11/24 04:10 Lactic Acid 1.7 mmol/L (0.4-2.0) 01/09/24 22:00 Calcium 8.2 mg/dL (8.5-10.1) L 01/11/24 04:10 Corrected Calcium 10.1 mg/dL (8.5-10.1) 01/11/24 04:10 Magnesium 1.6 mg/dL (2.0-2.9) L 01/11/24 04:10 Total Bilirubin 0.30 mg/dL (0.2-1.0) 01/11/24 04:10 AST 75 Units/L (15-37) H 01/11/24 04:10 ALT 47 Units/L (12-78) 01/11/24 04:10 Alkaline Phosphatase 82 Units/L (46-116) 01/11/24 04:10 Total Protein 5.4 g/dL (6.4-8.2) L 01/11/24 04:10 Albumin 1.6 g/dL (3.4-5.0) L 01/11/24 04:10 Globulin 3.8 g/dL (2.5-4.5) 01/11/24 04:10 Albumin/Globulin Ratio 0.4 Ratio (1.1-2.1) L 01/11/24 04:10 Lipase 28 Units/L (16-77) 01/09/24 20:06 Specimen Type Clean catch urine 01/09/24 21:35 Urine Color Yellow (YELLOW) 01/09/24 21:35 Urine Appearance Clear (CLEAR) 01/09/24 21:35 Urine pH 5.0 (5.0 - 8.0) 01/09/24 21:35 Ur Specific [place] 1.020 (1.000-1.030) 01/09/24 21:35 Urine Protein 2+ (NEGATIVE) 01/09/24 21:35 Urine Glucose (UA) Negative (NEGATIVE) 01/09/24 21:35 Urine Ketones Negative (NEGATIVE) 01/09/24 21:35 Urine Blood Negative (NEGATIVE) 01/09/24 21:35 Urine Nitrite Negative (NEGATIVE) 01/09/24 21:35 Urine Bilirubin Negative (NEGATIVE) 01/09/24 21:35 Urine Urobilinogen Normal (NORMAL) 01/09/24 21:35 Ur Leukocyte Esterase 1+ (NEGATIVE) 01/09/24 21:35 Urine RBC 0-2 /HPF (0-3) 01/09/24 21:35 Urine WBC 3-5 /HPF (0-5) 01/09/24 21:35 Ur Squamous Epith Cells Moderate /HPF (NEGATIVE) 01/09/24 21:35 Amorphous Sediment 1+ /HPF (NEGATIVE) 01/09/24 21:35 Urine Bacteria Trace /HPF (NEGATIVE) 01/09/24 21:35 Hyaline Casts Few /LPF (NEGATIVE) 01/09/24 21:35 Ur Culture Indicated? 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 transplanted heart: [place] heart Qualified Code(s): I25.10 - Atherosclerotic heart disease of [place] coronary artery without angina pectoris (8) Mixed hyperlipidemia: Status: Acute (9) PSVT (paroxysmal supraventricular tachycardia): Status: Acute
[2024-01-11] MEDS: ZOSYN VIAL 3.375 GRAMS 3.375 G in NS 100 ML IV 100 ML IV SCH (11:36)
--- NOTE | 2024-01-11 16:13 | CT ---
EXAM: PELVIS WITH CONTRAST HISTORY: RT gluteal abscess; COMPARISON: None. TECHNIQUE: Following the intravenous administration of iodinated contrast, spiral CT imaging was performed throu gh the pelvis and axial, coronal, and sagittal CT images were generated. FINDINGS: The visible portions of the kidneys enhance normally. Small bowel loops are normal. There is divert iculosis coli but no diverticulitis. Urinary bladder is normal. Uterus has been removed. There is moderate systemic atherosclerosis. There is mild spinal stenosis at L4-L5. On the right side there is azej-sw-qubvszdy L4 and L5 neural foraminal narrowing. On the left side there is ibzdwbra-sf-[id number] re L5 neural foraminal narrowing. Right gluteal region: There is skin thickening and extensive induration in the subcutaneous fat brayan tible with cellulitis. There is no discrete abscess. IMPRESSION: Cellulitis in the right gluteal region but no discrete abscess. THIS IS AN ELECTRONICALLY VERIFIED FINAL REPORT 01/11/2024 4:10 PM - Electronically signed by Yoni Novak MD
[2024-01-11] MEDS: TYLENOL 325 MG TAB PO PRN (20:05)
[2024-01-12 06:45] LABS: ALANINE AMINOTRANSFERASE 104 Units/L (12-78); ALBUMIN 1.6 g/dL (3.4-5.0); ALKALINE PHOSPHATASE 84 Units/L (46-116); ASPARTATE AMINO TRANSFERASE 130 Units/L (15-37); BLOOD UREA NITROGEN 21 mg/dL (7-18); CALCIUM 8.5 mg/dL (8.5-10.1); CARBON DIOXIDE 21.6 mmol/L (21-32); CHLORIDE 109 mmol/L (98-107); COR CA(FOR HYPOALB) 10.4 mg/dL (8.5-10.1); COR NA(FOR HYPERGLY) 143 mmol/L (136-145); CREATININE 0.99 mg/dL (0.55-1.02); GLUCOSE 141 mg/dL (65-99); MAGNESIUM 1.7 mg/dL (2.0-2.9); POTASSIUM 4.3 mmol/L (3.5-5.1); SODIUM 142 mmol/L (136-145); TOTAL PROTEIN 5.3 g/dL (6.4-8.2); eGFR NON BLACK RACES 57 (>60)
[2024-01-12 06:48] LABS: BASOPHILS % (AUTO) 0.1 % (0.2-1.0); EOSINOPHILS % (AUTO) 0.2 % (0.9-2.9); HEMATOCRIT 24.9 % (36.0-47.0); HEMOGLOBIN 8.5 g/dL (12.0-16.0); LYMPHOCYTES # (AUTO) 0.3 X10^3/uL (1.3-2.9); LYMPHOCYTES % (AUTO) 3.6 % (21.0-51.0); MEAN CORPUSCULAR HEMOGLOBIN 32.2 pg (27.0-34.0); MEAN CORPUSCULAR HGB CONC 34.1 g/dL (33.0-35.0); MEAN CORPUSCULAR VOLUME 94.3 fL (80.0-100.0); MEAN PLATELET VOLUME 7.5 fL (7.4-11.0); MONOCYTES # (AUTO) 0.4 x10^3/uL (0.3-0.8); NEUTROPHILS # (AUTO) 8.9 x10^3/uL (2.2-4.8); NEUTROPHILS % (AUTO) 92.1 % (42.0-75.0); PLATELET COUNT 147 X10^3/uL (150.0-450.0); RED BLOOD COUNT 2.64 X10^6/uL (3.5-5.4); RED CELL DISTRIBUTION WIDTH 15.8 % (11.6-16.5); WHITE BLOOD COUNT 9.6 X10^3/uL (3.6-10.0)
[2024-01-12 07:18] LABS: PLATELET MORPHOLOGY COMMENT NORMAL (NORMAL)
--- NOTE | 2024-01-12 10:40 | PCM.PROG ---
Progress Note Progress Note for Day of Date of Exam: 01/12/24 Subjective Subjective: Patient seen at bedside, no acute events overnight. She continues to have right buttock pain. She states pain medicine does help. She is currently on IV Zosyn and doxycycline for right gluteal cellulitis. CT pelvis did not show any abscess. On exam today, there seems to be more redness and fluctuance in the center, surrounding erythema seems to be similar to yesterday. There is no open spot for drainage. Blood Cx negative. She has been afebrile, WBC normal. Labs/imaging reviewed: -WBC 9.6 Hgb 8.5 Plt 147 K 4.3 Mag 1.7 BUN/Cr 21/0.9 Plan: Will add Vanc, stop doxycycline. Continue Zosyn. Monitor area for worsening redness/swelling. Discussed with patient if worsening in the AM then can have Dr Hernandez take a look and see if it needs to be drained. Continue hydration. Continue pain control. Follow pending cultures. Replace electrolytes as per protocol. Continue home medications. Monitor AM labs/imaging. Past Medical Family Social History Allergies: Allergies ciprofloxacin [From Cipro] Allergy (Verified 06/09/23 10:32) clindamycin Allergy (Verified 06/09/23 10:32) codeine Allergy (Verified 06/09/23 10:32) nitrofurantoin [From Macrobid] Allergy (Verified 06/09/23 10:32) Vital Signs and I&O's Vital Signs: Vital Signs Temperature 97.3 F Temperature 97.8 F Pulse Rate [Bilateral Radial] 60 Pulse Rate [Bilateral Radial] 53 Respiratory Rate 20 Respiratory Rate 18 Respiratory Rate 18 Respiratory Rate 17 Respiratory Rate 17 Respiratory Rate 20 Blood Pressure [Left Calf] 223/96 Blood Pressure [Left Calf] 162/77 Blood Pressure [Left Calf] 188/64 O2 Sat by Pulse Oximetry 97 O2 Sat by Pulse Oximetry 95 Intake and Output: Intake & Output 01/09/24 01/10/24 01/11/24 01/12/24 23:59 23:59 23:59 23:59 Intake Total 3190 / 3190 3551 / 3551 757 / 757 Balance 0 / 3190 3551 / 3551 757 / 757 Physical Exam Oriented: Normal Eyes: Normal Respiratory: Normal Cardiovascular: Normal Auscultation: Bowel Sounds: Normal Palpation: Normal Tenderness: Normal Skin: Red, Tender (right buttock area - erythema over the markings, warm, [place], central fluctuant area ) and Hot Musculoskeletal: Right and Leg Psychiatric: Normal Mood Description: Appropriate Affect: Normal Speech Pattern: Clear and Appropriate Laboratory and Diagnostics 01/12/24 05:51 01/12/24 05:51 Labs: 01/09/24 20:13 Blood Blood Culture - Preliminary 01/09/24 20:06 Blood Blood Culture - Preliminary Laboratory WBC 9.6 X10^3/uL (3.6-10.0) 01/12/24 05:51 RBC 2.64 X10^6/uL (3.5-5.4) L 01/12/24 05:51 Hgb 8.5 g/dL (12.0-16.0) L 01/12/24 05:51 Hct 24.9 % (36.0-47.0) L 01/12/24 05:51 MCV 94.3 fL (80.0-100.0) 01/12/24 05:51 MCH 32.2 pg (27.0-34.0) 01/12/24 05:51 MCHC 34.1 g/dL (33.0-35.0) 01/12/24 05:51 RDW 15.8 % (11.6-16.5) 01/12/24 05:51 Plt Count 147 X10^3/uL (150.0-450.0) L 01/12/24 05:51 Plt Count Comment Decreased (ADEQUATE) A 01/12/24 05:51 MPV 7.5 fL (7.4-11.0) 01/12/24 05:51 Neut % (Auto) 92.1 % (42.0-75.0) H 01/12/24 05:51 Lymph % (Auto) 3.6 % (21.0-51.0) L 01/12/24 05:51 [place] % (Auto) 4.0 % (0.0-13.0) 01/12/24 05:51 Eos % (Auto) 0.2 % (0.9-2.9) L 01/12/24 05:51 Baso % (Auto) 0.1 % (0.2-1.0) L 01/12/24 05:51 Neut # (Auto) 8.9 x10^3/uL (2.2-4.8) H 01/12/24 05:51 Lymph # (Auto) 0.3 X10^3/uL (1.3-2.9) L 01/12/24 05:51 [place] # (Auto) 0.4 x10^3/uL (0.3-0.8) 01/12/24 05:51 Eos # (Auto) 0.0 x10^3/uL (0.0-0.2) 01/12/24 05:51 Baso # (Auto) 0.0 X10^3/uL (0.0-0.1) 01/12/24 05:51 Absolute Nucleated RBC 0.6 /100WBC 01/12/24 05:51 Total Counted 100 01/12/24 05:51 Neutrophils % (Manual) 93 % (39-76) H 01/12/24 05:51 Band Neutrophils % 2 % (0-10) 01/11/24 04:10 Lymphocytes % (Manual) 5 % (13-43) L 01/12/24 05:51 Monocytes % (Manual) 2 % (4-9) L 01/12/24 05:51 Plt Morphology Comment Normal (NORMAL) 01/12/24 05:51 RBC Morphology Normal (NORMAL) 01/12/24 05:51 Sodium 142 mmol/L (136-145) 01/12/24 05:51 Corrected Sodium 143 mmol/L (136-145) 01/12/24 05:51 Potassium 4.3 mmol/L (3.5-5.1) 01/12/24 05:51 Chloride 109 mmol/L (98-107) H 01/12/24 05:51 Carbon Dioxide 21.6 mmol/L (21-32) 01/12/24 05:51 BUN 21 mg/dL (7-18) H 01/12/24 05:51 Creatinine 0.99 mg/dL (0.55-1.02) 01/12/24 05:51 Est GFR (MDRD) Af Amer > 60 (>60) 01/12/24 05:51 Est GFR (MDRD) Non-Af 57 (>60) L 01/12/24 05:51 Glucose 141 mg/dL (65-99) H 01/12/24 05:51 Lactic Acid 1.7 mmol/L (0.4-2.0) 01/09/24 22:00 Calcium 8.5 mg/dL (8.5-10.1) 01/12/24 05:51 Corrected Calcium 10.4 mg/dL (8.5-10.1) H 01/12/24 05:51 Magnesium 1.7 mg/dL (2.0-2.9) L 01/12/24 05:51 Total Bilirubin 0.40 mg/dL (0.2-1.0) 01/12/24 05:51 AST 130 Units/L (15-37) H 01/12/24 05:51 ALT 104 Units/L (12-78) H 01/12/24 05:51 Alkaline Phosphatase 84 Units/L (46-116) 01/12/24 05:51 Total Protein 5.3 g/dL (6.4-8.2) L 01/12/24 05:51 Albumin 1.6 g/dL (3.4-5.0) L 01/12/24 05:51 Globulin 3.7 g/dL (2.5-4.5) 01/12/24 05:51 Albumin/Globulin Ratio 0.4 Ratio (1.1-2.1) L 01/12/24 05:51 Lipase 28 Units/L (16-77) 01/09/24 20:06 Specimen Type Clean catch urine 01/09/24 21:35 Urine Color Yellow (YELLOW) 01/09/24 21:35 Urine Appearance Clear (CLEAR) 01/09/24 21:35 Urine pH 5.0 (5.0 - 8.0) 01/09/24 21:35 Ur Specific [place] 1.020 (1.000-1.030) 01/09/24 21:35 Urine Protein 2+ (NEGATIVE) 01/09/24 21:35 Urine Glucose (UA) Negative (NEGATIVE) 01/09/24 21:35 Urine Ketones Negative (NEGATIVE) 01/09/24 21:35 Urine Blood Negative (NEGATIVE) 01/09/24 21:35 Urine Nitrite Negative (NEGATIVE) 01/09/24 21:35 Urine Bilirubin Negative (NEGATIVE) 01/09/24 21:35 Urine Urobilinogen Normal (NORMAL) 01/09/24 21:35 Ur Leukocyte Esterase 1+ (NEGATIVE) 01/09/24 21:35 Urine RBC 0-2 /HPF (0-3) 01/09/24 21:35 Urine WBC 3-5 /HPF (0-5) 01/09/24 21:35 Ur Squamous Epith Cells Moderate /HPF (NEGATIVE) 01/09/24 21:35 Amorphous Sediment 1+ /HPF (NEGATIVE) 01/09/24 21:35 Urine Bacteria Trace /HPF (NEGATIVE) 01/09/24 21:35 Hyaline Casts Few /LPF (NEGATIVE) 01/09/24 21:35 Ur Culture Indicated? 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 transplanted heart: [place] heart Qualified Code(s): I25.10 - Atherosclerotic heart disease of [place] coronary artery without angina pectoris (8) Mixed hyperlipidemia: Status: Acute (9) PSVT (paroxysmal supraventricular tachycardia): Status: Acute
[2024-01-12] MEDS ORDERED: PHARMACY CONSULT - VANCOMYCIN XX SCH (11:00)
[2024-01-12] MEDS: VANCOMYCIN IV *PREMIX 1 G/200 ML BAG 1 G/200 ML PIGGYBACK IV SCH (11:49)
[2024-01-12] MEDS: APRESOLINE INJ 20 MG VIAL IVP PRN (13:11)
[2024-01-12] MEDS: COLACE CAP 100 MG PO PRN (16:05)
[2024-01-12] MEDS: MAG-OX TAB PO SCH (17:23)
[2024-01-12] MEDS: RESTORIL CAP 15 MG PO PRN (21:25)
[2024-01-13 06:38] LABS: BASOPHILS % (AUTO) 0.2 % (0.2-1.0); EOSINOPHILS # (AUTO) 0.1 x10^3/uL (0.0-0.2); EOSINOPHILS % (AUTO) 0.9 % (0.9-2.9); HEMOGLOBIN 8.6 g/dL (12.0-16.0); LYMPHOCYTES # (AUTO) 0.6 X10^3/uL (1.3-2.9); LYMPHOCYTES % (AUTO) 6.7 % (21.0-51.0); MEAN CORPUSCULAR HEMOGLOBIN 31.4 pg (27.0-34.0); MEAN CORPUSCULAR HGB CONC 33.2 g/dL (33.0-35.0); MEAN CORPUSCULAR VOLUME 94.4 fL (80.0-100.0); MEAN PLATELET VOLUME 7.2 fL (7.4-11.0); MONOCYTES # (AUTO) 0.4 x10^3/uL (0.3-0.8); MONOCYTES % (AUTO) 5.2 % (0.0-13.0); NEUTROPHILS # (AUTO) 7.3 x10^3/uL (2.2-4.8); PLATELET COUNT 184 X10^3/uL (150.0-450.0); RED BLOOD COUNT 2.75 X10^6/uL (3.5-5.4); RED CELL DISTRIBUTION WIDTH 16.1 % (11.6-16.5); WHITE BLOOD COUNT 8.4 X10^3/uL (3.6-10.0)
[2024-01-13 06:42] LABS: ALANINE AMINOTRANSFERASE 131 Units/L (12-78); ALBUMIN 1.6 g/dL (3.4-5.0); ALKALINE PHOSPHATASE 83 Units/L (46-116); ASPARTATE AMINO TRANSFERASE 118 Units/L (15-37); BLOOD UREA NITROGEN 18 mg/dL (7-18); CALCIUM 8.6 mg/dL (8.5-10.1); CARBON DIOXIDE 18.8 mmol/L (21-32); CHLORIDE 111 mmol/L (98-107); COR CA(FOR HYPOALB) 10.5 mg/dL (8.5-10.1); COR NA(FOR HYPERGLY) 142 mmol/L (136-145); CREATININE 1.02 mg/dL (0.55-1.02); GLUCOSE 120 mg/dL (65-99); MAGNESIUM 1.9 mg/dL (2.0-2.9); POTASSIUM 3.9 mmol/L (3.5-5.1); SODIUM 142 mmol/L (136-145); TOTAL PROTEIN 5.2 g/dL (6.4-8.2); eGFR NON BLACK RACES 55 (>60)
[2024-01-13] MEDS: MAG-OX TAB PO SCH (08:28)
[2024-01-13] MEDS: VIBRAMYCIN PO SCH (08:28)
[2024-01-13] MEDS: CONSULT PHARMACY - POTASSIUM & MAGNESIUM XX SCH ×2 (09:09)
[2024-01-13] MEDS: NORVASC TAB 5 MG PO SCH (09:39)
[2024-01-13] MEDS ORDERED: K-DUR TAB 20 MEQ PO SCH (11:00)
--- NOTE | 2024-01-13 16:32 | NOTE.SOAP ---
Soap Note Note for Day of Date of Exam: 01/13/24 Subjective Data Subjective Data: Patiently for a.m. rounds. Started on Vanco and Zosyn yesterday after a CT was obtained Saturday. Patient still with a great deal of pain to her right buttocks. Area does seem to be improving per nursing. Objective Data Objective Data: WD, WN, elderly female in NAD. Head NCAT. Hearing intact conversation. Mood affect appropriate. Heart regular rate and rhythm. Bowel sounds present. Lungs clear bilaterally. Gluteal cellulitis does appear greatly improved over the last 72 hours. Small area along with darkening redness. Central area is more indurated. No area of fluctuance. Assessment Assessment: 1. Severe sepsis-resolved. Switch to p.o. doxycycline. 2. ARLEEN-resolved. Continue rehydration. 3. Right gluteal abscess/cellulitis-improving. See above. 4. Essential hypertension-uncontrolled. Continue to adjust medications as needed. Continue protocol.
[2024-01-13 23:48] VITALS: RESP 20
[2024-01-14 03:46] VITALS: O2SAT 97
[2024-01-14 06:33] LABS: BASOPHILS % (AUTO) 0.3 % (0.2-1.0); EOSINOPHILS # (AUTO) 0.1 x10^3/uL (0.0-0.2); EOSINOPHILS % (AUTO) 1.2 % (0.9-2.9); HEMATOCRIT 27.7 % (36.0-47.0); HEMOGLOBIN 9.3 g/dL (12.0-16.0); LYMPHOCYTES # (AUTO) 0.7 X10^3/uL (1.3-2.9); LYMPHOCYTES % (AUTO) 9.3 % (21.0-51.0); MEAN CORPUSCULAR HGB CONC 33.6 g/dL (33.0-35.0); MEAN CORPUSCULAR VOLUME 95.1 fL (80.0-100.0); MEAN PLATELET VOLUME 7.2 fL (7.4-11.0); MONOCYTES # (AUTO) 0.5 x10^3/uL (0.3-0.8); MONOCYTES % (AUTO) 6.2 % (0.0-13.0); NEUTROPHILS # (AUTO) 6.2 x10^3/uL (2.2-4.8); PLATELET COUNT 218 X10^3/uL (150.0-450.0); RED BLOOD COUNT 2.91 X10^6/uL (3.5-5.4); RED CELL DISTRIBUTION WIDTH 16.1 % (11.6-16.5); WHITE BLOOD COUNT 7.5 X10^3/uL (3.6-10.0)
[2024-01-14 06:42] LABS: ALANINE AMINOTRANSFERASE 95 Units/L (12-78); ALBUMIN 1.7 g/dL (3.4-5.0); ALKALINE PHOSPHATASE 83 Units/L (46-116); ASPARTATE AMINO TRANSFERASE 59 Units/L (15-37); BLOOD UREA NITROGEN 16 mg/dL (7-18); CALCIUM 8.6 mg/dL (8.5-10.1); CARBON DIOXIDE 19.5 mmol/L (21-32); CHLORIDE 111 mmol/L (98-107); COR CA(FOR HYPOALB) 10.4 mg/dL (8.5-10.1); COR NA(FOR HYPERGLY) 141 mmol/L (136-145); GLUCOSE 124 mg/dL (65-99); POTASSIUM 4.4 mmol/L (3.5-5.1); SODIUM 140 mmol/L (136-145); TOTAL PROTEIN 5.4 g/dL (6.4-8.2); eGFR NON BLACK RACES > 60 (>60)
[2024-01-14] MEDS: ULTRAM PO ONE (10:08)
[2024-01-14 11:59] VITALS: BP 188/92; PULSE 65; TEMP 97.8
--- NOTE | 2024-01-14 16:56 | PCM.DCPLAN ---
DISCHARGE SUMMARY Admission Date Date of Admission: 01/09/24 Discharge Date Discharge Date: 01/14/24 Admission Diagnoses (1) Cellulitis: Status: Acute (2) Acute anemia: Status: Acute (3) Hypomagnesemia: Status: Resolved (4) ARLEEN (acute kidney injury): Status: Resolved (5) Essential (primary) hypertension: Status: Chronic (6) Frequent falls: Status: Acute (7) Atherosclerotic heart disease of [place] coronary artery without angina pectoris: Status: Chronic (8) Mixed hyperlipidemia: Status: Chronic (9) PSVT (paroxysmal supraventricular tachycardia): Status: Chronic Discharge Medications Discharge Medications: Home Medication List atorvastatin 40 mg tablet 40 mg PO QDAY 01/09/24 [History] carvedilol 12.5 mg tablet 12.5 mg PO BID 01/09/24 [History] clopidogrel 75 mg tablet 75 mg PO QDAY 01/09/24 [History] diltiazem HCl 180 mg capsule,extended release 24 hr 180 mg PO QDAY 01/09/24 [History] docusate sodium 100 mg capsule 100 mg PO QDAY PRN 01/09/24 [History] hydralazine 10 mg tablet 10 mg PO BID 01/09/24 [History] losartan 100 mg tablet 100 mg PO QDAY 01/09/24 [History] pantoprazole 40 mg tablet,delayed release 40 mg PO QDAY 01/09/24 [History] potassium chloride 10 mEq tablet,extended release(part/cryst) 10 meq PO QDAY 01/09/24 [History] tramadol 50 mg tablet 100 mg PO Q6H PRN 01/09/24 [History] doxycycline hyclate 100 mg tablet,delayed release 100 mg PO BID 10 days #20 tabs 01/13/24 [Rx] Prescriptions: doxycycline hyclate [place] Hospital Course Vital Signs: Vital Signs Temperature 98.0 F Pulse Rate [Bilateral Radial] 64 Respiratory Rate 20 Blood Pressure [Left Calf] 160/90 O2 Sat by Pulse Oximetry 97 Latest Lab Results: Laboratory Last Values WBC 7.5 X10^3/uL (3.6-10.0) 01/14/24 05:45 RBC 2.91 X10^6/uL (3.5-5.4) L 01/14/24 05:45 Hgb 9.3 g/dL (12.0-16.0) L 01/14/24 05:45 Hct 27.7 % (36.0-47.0) L 01/14/24 05:45 MCV 95.1 fL (80.0-100.0) 01/14/24 05:45 MCH 32.0 pg (27.0-34.0) 01/14/24 05:45 MCHC 33.6 g/dL (33.0-35.0) 01/14/24 05:45 RDW 16.1 % (11.6-16.5) 01/14/24 05:45 Plt Count 218 X10^3/uL (150.0-450.0) 01/14/24 05:45 Plt Count Comment Decreased (ADEQUATE) A 01/12/24 05:51 MPV 7.2 fL (7.4-11.0) L 01/14/24 05:45 Neut % (Auto) 83.0 % (42.0-75.0) H 01/14/24 05:45 Lymph % (Auto) 9.3 % (21.0-51.0) L 01/14/24 05:45 [place] % (Auto) 6.2 % (0.0-13.0) 01/14/24 05:45 Eos % (Auto) 1.2 % (0.9-2.9) 01/14/24 05:45 Baso % (Auto) 0.3 % (0.2-1.0) 01/14/24 05:45 Neut # (Auto) 6.2 x10^3/uL (2.2-4.8) H 01/14/24 05:45 Lymph # (Auto) 0.7 X10^3/uL (1.3-2.9) L 01/14/24 05:45 [place] # (Auto) 0.5 x10^3/uL (0.3-0.8) 01/14/24 05:45 Eos # (Auto) 0.1 x10^3/uL (0.0-0.2) 01/14/24 05:45 Baso # (Auto) 0.0 X10^3/uL (0.0-0.1) 01/14/24 05:45 Absolute Nucleated RBC 0.0 /100WBC 01/14/24 05:45 Total Counted 100 01/12/24 05:51 Neutrophils % (Manual) 93 % (39-76) H 01/12/24 05:51 Band Neutrophils % 2 % (0-10) 01/11/24 04:10 Lymphocytes % (Manual) 5 % (13-43) L 01/12/24 05:51 Monocytes % (Manual) 2 % (4-9) L 01/12/24 05:51 Plt Morphology Comment Normal (NORMAL) 01/12/24 05:51 RBC Morphology Normal (NORMAL) 01/12/24 05:51 Sodium 140 mmol/L (136-145) 01/14/24 05:45 Corrected Sodium 141 mmol/L (136-145) 01/14/24 05:45 Potassium 4.4 mmol/L (3.5-5.1) 01/14/24 05:45 Chloride 111 mmol/L (98-107) H 01/14/24 05:45 Carbon Dioxide 19.5 mmol/L (21-32) L 01/14/24 05:45 BUN 16 mg/dL (7-18) 01/14/24 05:45 Creatinine 0.90 mg/dL (0.55-1.02) 01/14/24 05:45 Est GFR (MDRD) Af Amer > 60 (>60) 01/14/24 05:45 Est GFR (MDRD) Non-Af > 60 (>60) 01/14/24 05:45 Glucose 124 mg/dL (65-99) H 01/14/24 05:45 Lactic Acid 1.7 mmol/L (0.4-2.0) 01/09/24 22:00 Calcium 8.6 mg/dL (8.5-10.1) 01/14/24 05:45 Corrected Calcium 10.4 mg/dL (8.5-10.1) H 01/14/24 05:45 Magnesium 2.0 mg/dL (2.0-2.9) 01/14/24 05:45 Total Bilirubin 0.40 mg/dL (0.2-1.0) 01/14/24 05:45 AST 59 Units/L (15-37) H 01/14/24 05:45 ALT 95 Units/L (12-78) H 01/14/24 05:45 Alkaline Phosphatase 83 Units/L (46-116) 01/14/24 05:45 Total Protein 5.4 g/dL (6.4-8.2) L 01/14/24 05:45 Albumin 1.7 g/dL (3.4-5.0) L 01/14/24 05:45 Globulin 3.7 g/dL (2.5-4.5) 01/14/24 05:45 Albumin/Globulin Ratio 0.5 Ratio (1.1-2.1) L 01/14/24 05:45 Lipase 28 Units/L (16-77) 01/09/24 20:06 Specimen Type Clean catch urine 01/09/24 21:35 Urine Color Yellow (YELLOW) 01/09/24 21:35 Urine Appearance Clear (CLEAR) 01/09/24 21:35 Urine pH 5.0 (5.0 - 8.0) 01/09/24 21:35 Ur Specific [place] 1.020 (1.000-1.030) 01/09/24 21:35 Urine Protein 2+ (NEGATIVE) 01/09/24 21:35 Urine Glucose (UA) Negative (NEGATIVE) 01/09/24 21:35 Urine Ketones Negative (NEGATIVE) 01/09/24 21:35 Urine Blood Negative (NEGATIVE) 01/09/24 21:35 Urine Nitrite Negative (NEGATIVE) 01/09/24 21:35 Urine Bilirubin Negative (NEGATIVE) 01/09/24 21:35 Urine Urobilinogen Normal (NORMAL) 01/09/24 21:35 Ur Leukocyte Esterase 1+ (NEGATIVE) 01/09/24 21:35 Urine RBC 0-2 /HPF (0-3) 01/09/24 21:35 Urine WBC 3-5 /HPF (0-5) 01/09/24 21:35 Ur Squamous Epith Cells Moderate /HPF (NEGATIVE) 01/09/24 21:35 Amorphous Sediment 1+ /HPF (NEGATIVE) 01/09/24 21:35 Urine Bacteria Trace /HPF (NEGATIVE) 01/09/24 21:35 Hyaline Casts Few /LPF (NEGATIVE) 01/09/24 21:35 Ur Culture Indicated? No/not indicated 01/09/24 21:35 Hospital Course: Patient admitted from home via the ER due to worsening pain in her right buttocks found to be cellulitis along with increasing weakness of her lower extremities. She was started on IV doxycycline with fair response. CT obtained showing no abscess or fistula. Vanco and Zosyn were added on for 48 hours. IV antibiotics were then stopped and p.o. doxycycline started. Patient steadily improved as far as the area of cellulitis but continued to have pain with movement and sitting. She and her son did desire for her to go to [facility] for rehab to strengthen her legs. She does feel like her legs were getting better with the PT at the hospital, as well. Patient discharged in improved, stable condition to subacute rehab with plans to complete 10 days of doxycycline p.o.
[2024-01-14] MEDS ORDERED: LIPITOR TAB 40 MG PO SCH (21:00)
== END 2024-01-14 11:55 | DRG 603 ==
LOC: ER 19:07 → MED/SURG 19:07 → OBSVTOIN 22:34 → MED/SURG 23:01
PROVIDERS: ADMIT Family Medicine; ATTEND Family Medicine
DX: D64.89 Other specified anemias; K21.9 Gastro-esophageal reflux disease without esophagitis; L02.31 Cutaneous abscess of buttock; R53.1 Weakness; I10 Essential (primary) hypertension; E83.42 Hypomagnesemia; E78.2 Mixed hyperlipidemia; R29.6 Repeated falls; L03.317 Cellulitis of buttock; N17.8 Other acute kidney failure; I47.19 Other supraventricular tachycardia; I25.10 Atherosclerotic heart disease of native coronary artery without angina pectoris